=== PATIENT | male | born 1980 | race Caucasian/White ===

== ENCOUNTER 2021-01-30 01:21 | Emergency (ER) | payer MEDICAID, SELFPAY ==
[2021-01-30 03:49] VITALS: BP 122/72; PULSE 80; RESP 18; TEMP 36.7; O2SAT 100; BMI 31.1
--- NOTE | 2021-01-30 04:23 | ED.GENADULT ---
HPI - General Adult General Chief complaint: General Medical Stated complaint: CAT BITE Time Seen by Provider: 01/30/21 04:22 Source: patient Mode of arrival: ambulatory Limitations: no limitations History of Present Illness HPI narrative: Patient was scratched and bit by his cat 4 days ago on to his right leg noticed slight redness in the right thigh area no fever , domestic cat and behaving normal immunized Related Data Home Medications Medication Instructions Recorded Confirmed albuterol sulfate [ProAir HFA] 2 puff PO Q4-6H PRN 01/30/21 01/30/21 baclofen 1 tab PO TID PRN 01/30/21 01/30/21 blood sugar diagnostic [FreeStyle 01/30/21 01/30/21 Lite Strips] calcium carbonate [Calcium Antacid] 1 tab PO BID PRN 01/30/21 01/30/21 fluticasone propionate [Flovent 2 puff PO BID 01/30/21 01/30/21 HFA] ibuprofen 1 tab PO TID PRN 01/30/21 01/30/21 loratadine 1 tab PO DAILY PRN 01/30/21 01/30/21 varenicline [Chantix Continuing 1 tab PO BID 01/30/21 01/30/21 Month Box] Allergies Allergy/AdvReac Type Severity Reaction Status Date / Time pollen extracts [POLLEN] Allergy Intermediate SEASONAL Unverified 07/17/20 15:17 tramadol [TRAMADOL] Allergy Unknown LOST Unverified 07/17/20 15:17 TASTE,TONGUE SWELLING Review of Systems Review of Systems: Yes all other systems are reviewed and are negative PMFSH Past Medical History Medical History Asthma Back pain with history of spinal surgery Diabetes Failed spinal cord stimulator HTN (hypertension) Hypercholesteremia Surgical History H/O discectomy Social History Social History Advance Directives: No Advance Directives Information Provided: No Physical Exam Vital Signs: Vital Signs: Last Vital Signs Temp 98.0 F 01/30/21 03:49 Pulse 80 01/30/21 03:49 Resp 18 01/30/21 03:49 BP 122/72 01/30/21 03:49 Pulse Ox 100 01/30/21 03:49 Body Mass Index 31.1 Const: General: comfortable and no acute distress Extrem: Upper/lower leg/hip images: 1. Scratch keshia without significant surrounding erythema 2. Bite keshia with slight erythema no induration or pus discharge Discharge Plan Discharge Prescriptions: No Action calcium carbonate [Calcium Antacid] 300 mg (750 mg) tablet,chewable 1 tab PO BID PRN (Reason: Acid Reflux) RF: 0 (DME) FreeStyle Lite Strips Strip MISCELLANEOUS DAILY RF: 0 baclofen 20 mg tablet 1 tab PO TID PRN (Reason: Pain) RF: 0 ibuprofen 600 mg tablet 1 tab PO TID PRN (Reason: Pain) RF: 0 albuterol sulfate [ProAir HFA] 90 mcg/actuation HFA aerosol inhaler 2 puff PO Q4-6H PRN (Reason: Wheezing) RF: 0 loratadine 10 mg tablet 1 tab PO DAILY PRN (Reason: Itching) RF: 0 Flovent HFA 110 mcg/actuation HFA aerosol inhaler 2 puff PO BID RF: 0 Chantix Continuing Month Box 1 mg tablet 1 tab PO BID RF: 0
[2021-01-30] MEDS: Diphth,Pertus(ACell),Tet Adult 0.5 ML SYRINGE IM (05:20)
[2021-01-30] MEDS: Amoxicillin/Potassium Clav 875 MG TABLET PO (05:21)
== END 2021-01-30 05:35 | disposition home or self-care (01) ==
PROVIDERS: Emergency Provider Internal Medicine
DX: S81.851A Open bite, right lower leg, initial encounter (principal); M79.604 Pain in right leg; I10 Essential (primary) hypertension; Z79.899 Other long term (current) drug therapy; W55.01XA Bitten by cat, initial encounter; Y93.9 Activity, unspecified; Y92.9 Unspecified place or not applicable; Y99.9 Unspecified external cause status; E11.9 Type 2 diabetes mellitus without complications
CPT/HCPCS: 90471; 90715; 99283

== ENCOUNTER 2021-09-13 16:32 | Emergency (ER) | payer MEDICAID, SELFPAY ==
--- NOTE | ~2021-09-13 | XR_ITS ---
EXAMINATION: XR LUMBOSACRAL SPINE CLINICAL INFORMATION: Midline tenderness COMPARISON: None TECHNIQUE: Three views of the lumbosacral spine. FINDINGS: There are 5 lumbar type vertebral bodies that are normal in height and alignment. Diffuse degenerative disc disease throughout the lumbar spine. Anterior degenerative osteophytes. Posterior elements are intact. Left back generator with leads projecting cranially, off image. XR/XR lumbar spine 2-3V IMPRESSION: Degenerative changes of the lumbar spine without acute abnormality.
[2021-09-13 16:35] VITALS: BP 145/84; PULSE 94; RESP 18; TEMP 36.6; O2SAT 96; BMI 29.2
--- NOTE | 2021-09-13 17:22 | ED.BACK ---
HPI - Back Pain/Injury General Chief Complaint: Back Pain/Injury Stated Complaint: Back Pain No Injury Time Seen by Provider: 09/13/21 17:03 Source: patient Mode of arrival: ambulatory Limitations: no limitations History of Present Illness HPI Narrative: 41-year-old male with a history of chronic back pain, multiple back surgeries with a nerve stimulator in place here with complaints of acute on chronic pain over the last 3-4 days after stepping wrong?. No radiation of pain. No numbness or tingling. No saddle anesthesia. No bowel or bladder incontinence. No fevers or chills. Patient taking Motrin at home with continued symptoms. Has appointment in September from with [facility]. Related Data Home Medications Medication Instructions Recorded Confirmed albuterol sulfate 90 mcg/actuation 2 puff PO Q4-6H PRN 01/30/21 01/30/21 aerosol inhaler (ProAir HFA) baclofen 20 mg tablet 1 tab PO TID PRN 01/30/21 01/30/21 blood sugar diagnostic (FreeStyle 01/30/21 01/30/21 Lite Strips) calcium carbonate 300 mg (750 mg) 1 tab PO BID PRN 01/30/21 01/30/21 chewable tablet (Calcium Antacid) fluticasone propionate 110 2 puff PO BID 01/30/21 01/30/21 mcg/actuation HFA aerosol inhaler (Flovent HFA) ibuprofen 600 mg tablet 1 tab PO TID PRN 01/30/21 01/30/21 loratadine 10 mg tablet 1 tab PO DAILY PRN 01/30/21 01/30/21 varenicline 1 mg tablet (Chantix 1 tab PO BID 01/30/21 01/30/21 Continuing Month Box) Previous Rx's Medication Instructions Recorded amoxicillin 875 mg-potassium 1 tab PO BID #20 tab 01/30/21 clavulanate 125 mg tablet (Augmentin) cyclobenzaprine 10 mg tablet 10 mg PO TID PRN #10 tab 09/13/21 lidocaine 5 % topical patch 1 patch TOPICAL DAILY #15 ea 09/13/21 (Lidoderm) prednisone 20 mg tablet 40 mg PO DAILY #10 tab 09/13/21 Allergies Allergy/AdvReac Type Severity Reaction Status Date / Time pollen extracts [POLLEN] Allergy Intermediate SEASONAL Verified 11/14/21 17:11 tramadol [TRAMADOL] Allergy Unknown LOST Verified 09/13/21 17:11 TASTE,TONGUE SWELLING Review of Systems Review of Systems: Yes all other systems are reviewed and are negative Constitutional: Constitutional: Reports no additional constitutional complaints, Denies body ache(s), Denies chills, Denies fever(s), Denies headache(s) and Denies weakness Eyes: Eyes: Reports no additional eye complaints and Denies change in vision ENT: Reports system reviewed and no additional complaints, except as documented, Denies dizziness, Denies headache(s), Denies nasal congestion, Denies nasal discharge and Denies neck pain Cardiovascular: Cardiovascular: Reports no additional cardiovascular complaints, Denies chest pain, Denies leg edema and Denies dyspnea Respiratory: Respiratory: Reports no additional respiratory complaints, Denies cough and Denies dyspnea Gastrointestinal: Gastrointestinal: Reports no additional gastrointestinal complaints, Denies abdominal pain, Denies diarrhea, Denies nausea and Denies vomiting Genitourinary: Genitourinary: Denies urinary incontinence Musculoskeletal: Musculoskeletal: Reports no additional musculoskeletal complaints, Reports back pain, Denies arthralgias, Denies joint swelling, Denies neck pain, Denies numbness and Denies tingling Integumentary/Breasts: Skin/Breast: Reports system reviewed and no additional complaints, except as docu and Denies rash Neurologic: Reports system reviewed and no additional complaints, except as documented, Denies Abnormal speech present, Denies dizziness, Denies headache(s), Denies numbness, Denies tingling and Denies weakness PMFSH Past Medical History Attestation statement: The following information was validated with the patient. Source: old records reviewed and nursing notes reviewed Medical History Asthma Back pain with history of spinal surgery Diabetes Failed spinal cord stimulator HTN (hypertension) Hypercholesteremia Surgical History H/O discectomy Social History Social History Advance Directives: No Advance Directives Information Provided: No Physical Exam Vital Signs: Vital Signs: Last Vital Signs Temp 98 F 09/13/21 16:35 Pulse 94 09/13/21 16:35 Resp 18 09/13/21 16:35 BP 145/84 H 09/13/21 16:35 Pulse Ox 96 09/13/21 16:35 Body Mass Index 29.2 Const: General: cooperative, healthy appearing, comfortable and no acute distress Orientation/consciousness: patient oriented x3 Limitations: no limitations HENMT: Head: Yes normal to inspection Ears: hearing grossly normal bilaterally General nose exam: Normal external nose present Face and sinus: Yes normal facial exam Mouth: Normal oral and palatal mucosa present Throat: Yes posterior oropharynx normal Eyes: General: appearance normal, both eyes and all related structures Pupils: Equal, round and reactive pupils present Neck: Neck: Yes normal visual inspection Chest: Chest palpation & inspection: normal inspection of the chest Resp: Effort & Inspection: normal respiratory effort Auscultation: clear to auscultation bilaterally Cardio: Rate: regular rate Rhythm: regular rhythm Peripheral pulses: Peripheral pulses 2+ throughout GI: Inspection: Yes normal to inspection Palpation (GI): Soft to palpation and nontender Auscultation: normal bowel sounds : General: Yes no CVA tenderness Back/Spine/Pelvis: Other: midline tenderness lumbar with no step offs or deformities. Back: no CVA tenderness Thoracic/Lumbar Spine: thoracic and lumbar spine normal to inspection Skin: General skin exam: no rashes or lesions noted Neuro: General: patient oriented x3, no focal motor deficits and normal sensation to monofilament Cranial nerves: Yes CN's II-XII intact bilaterally, Yes Equal, round and reactive pupils present, Yes Bilaterally intact EOM present, Yes Nystagmus not present and Yes Normal facial strength present Cognition (Neuro): normal cognition Speech: No Abnormal speech present Gait exam (Neuro): Normal gait present Motor exam (neuro): 5/5 motor strength present throughout Sensory Exam: Normal double simultaneous stimulation for sensation Deep tendon reflexes (DTR's): Right patellar reflex intensity grade: 2+ and Left patellar reflex intensity grade: 2+ Extrem: General: Yes normal to inspection, Yes no pedal edema and Yes no calf tenderness Course Course Course Narrative: 41 yo male here with acute on chronic low back pain. Midline tenderness so will check x-ray. Normal neuro exam. No neurological deficits or red flag symptoms. 1844-x-ray shows degenerative changes no other acute finding. Patient received Toradol IM with improvement of symptoms. Will refer him back to his spine doctor. He tells me usually prednisone helps at home so I will prescribe this. Reviewed worrisome signs and symptoms of when to return to the emergency department. Comfortable discharge home. MDM - Back Pain/Injury Medical Records Attestation: I reviewed the patient's medical records. Lab Data Attestation: I reviewed the patient's lab results. Imaging Data lumbar xray: Attestation: I personally reviewed and interpreted this imaging study as follows: Radiologist's impression: FINDINGS: There are 5 lumbar type vertebral bodies that are normal in height and alignment. Diffuse degenerative disc disease throughout the lumbar spine. Anterior degenerative osteophytes. Posterior elements are intact. Left back generator with leads projecting cranially, off image. XR/XR lumbar spine 2-3V IMPRESSION: Degenerative changes of the lumbar spine without acute abnormality. Discharge Plan Discharge Clinical Impression: Strain of lumbar region Patient Disposition: Home, Self-Care Instructions: Back Pain (ED) Additional Instructions: Heat or ice Gentle stretching Follow-up with your specialist Prescriptions: New prednisone 20 mg tablet 40 mg PO DAILY Qty: 10 RF: 0 lidocaine [Lidoderm] 5 % adhesive patch,medicated 1 patch topical DAILY Qty: 15 RF: 0 cyclobenzaprine 10 mg tablet 10 mg PO TID PRN (Reason: muscle spasm) Qty: 10 RF: 0 No Action calcium carbonate [Calcium Antacid] 300 mg (750 mg) tablet,chewable 1 tab PO BID PRN (Reason: Acid Reflux) RF: 0 (DME) FreeStyle Lite Strips Strip MISCELLANEOUS DAILY RF: 0 baclofen 20 mg tablet 1 tab PO TID PRN (Reason: Pain) RF: 0 ibuprofen 600 mg tablet 1 tab PO TID PRN (Reason: Pain) RF: 0 albuterol sulfate [ProAir HFA] 90 mcg/actuation HFA aerosol inhaler 2 puff PO Q4-6H PRN (Reason: Wheezing) RF: 0 loratadine 10 mg tablet 1 tab PO DAILY PRN (Reason: Itching) RF: 0 Flovent HFA 110 mcg/actuation HFA aerosol inhaler 2 puff PO BID RF: 0 Chantix Continuing Month Box 1 mg tablet 1 tab PO BID RF: 0 amoxicillin-pot clavulanate [Augmentin] 875-125 mg tablet 1 tab PO BID Qty: 20 RF: 0 Referrals: [facility] [Primary Care Provider] - 2 days
[2021-09-13] MEDS: Ketorolac Tromethamine 60 MG/2 ML VIAL IM (19:08)
== END 2021-09-13 19:10 | disposition home or self-care (01) ==
PROVIDERS: Emergency Provider Emergency Medicine
DX: S39.012A Strain of muscle, fascia and tendon of lower back, initial encounter (principal); E11.9 Type 2 diabetes mellitus without complications; I10 Essential (primary) hypertension; J45.909 Unspecified asthma, uncomplicated; X58.XXXA Exposure to other specified factors, initial encounter; Y93.9 Activity, unspecified; Y92.9 Unspecified place or not applicable; Y99.9 Unspecified external cause status
CPT/HCPCS: 72100; 96372; 99284; J1885

== ENCOUNTER 2022-04-28 18:36 | Inpatient (IN) | payer OTHER, SELFPAY ==
[2022-04-28 19:00] VITALS: BP 137/92; PULSE 76; TEMP 36.9; O2SAT 97
[2022-04-28 19:20] VITALS: BMI 26.6
--- NOTE | 2022-04-28 19:44 | PC.NURSE ---
Perry is alert, fully oriented, pleasant and cooperative with admission assessment. Perry is admitted to [facility] on CV from [facility] for suicidal ideation with plan to OD on street drugs. He has history of depression and suicide attempts as well as polysubstance use disorder. Perry reports drinking > 10 drinks per day for a year. On admission he is placed on CIWA for treatment of alcohol WD and scores 14. Perry reports he is safe on the unit and will contact staff if that changes. He reports struggling with anxiety. He states he does not like how meds make him feel. Recent stressors include loss of job and housing. He reports poor appetite with 14 lb weight loss. He reports he drinks until he falls asleep and took ativan at HS in ED so is unsure if he has insomnia. His ability to focus is fair. Speech is normal rate, rhythm amd prosody with some thought blocking noted. He denies AH and VH. He reports 7/10 back pain but denies other physical complaint.
[2022-04-28] MEDS: LORazepam 1 MG TABLET 2 MG PO (19:57)
[2022-04-28] MEDS: Ibuprofen 600 MG TABLET PO (19:57)
[2022-04-29 08:30] VITALS: BP 138/95; PULSE 84; RESP 20; TEMP 36.7; O2SAT 97
[2022-04-29] MEDS: Thiamine HCL 100 MG TABLET PO (08:41)
[2022-04-29] MEDS: Ibuprofen 600 MG TABLET PO (08:41)
[2022-04-29] MEDS: LORazepam 1 MG TABLET 2 MG PO (08:42)
[2022-04-29 09:52] LABS: Estimated Average Glucose 111 mg/dL; Hemoglobin A1c % 5.5 %
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
[2022-04-29 10:35] LABS: Alanine Aminotransferase 13 U/L (0-40); Albumin Level 3.9 g/dL (3.5-5.0); Alkaline Phosphatase 75 U/L (39-117); Anion Gap 10 (12-20); Aspartate Amino Transferase 16 U/L (5-37); Bilirubin Total 0.4 mg/dL (0.0-1.0); Blood Urea Nitrogen 13 mg/dL (9-16); Calcium 8.6 mg/dL (8.4-10.2); Carbon Dioxide 26 mmol/L (22-29); Chloride 107 mmol/L (96-108); Cholesterol 196 mg/dL; Creatinine Clr Calc Pharmacy 106.8; Estimated Glomerular Filt Rate > 60; Glucose Fasting 98 mg/dL (60-99); HDL Cholesterol 48 mg/dL; LDL Cholesterol Calculated 114 mg/dl; Potassium 4.7 mmol/L (3.3-5.1); Sodium 138 mmol/L (135-145); Total Protein 6.9 g/dL (6.5-8.0); Triglycerides 171 mg/dL
[2022-04-29 10:59] LABS: Thyroid Stimulating Hormone 0.62 uIU/mL (0.32-4.0)
[2022-04-29 11:31] LABS: Folate 10.5 ng/mL (> or = 4.0); Vitamin B12 566 pg/mL (200-900)
[2022-04-29 12:52] VITALS: BP 148/98; PULSE 77; RESP 18; TEMP 36.6; O2SAT 99
[2022-04-29] MEDS: LORazepam 1 MG TABLET PO (12:55)
[2022-04-29 14:42] VITALS: BP 129/78; PULSE 87; RESP 18; TEMP 36.8; O2SAT 99
[2022-04-29] MEDS: Sertraline HCL 50 MG TABLET PO (14:43)
[2022-04-29] MEDS: cloNIDine HCL 0.1 MG TABLET PO (14:43)
--- NOTE | 2022-04-29 14:59 | MHC.CLN ---
PT TRIGGERS FOR WT LOSS ON NURSING ADMISSION ASSESSMENT PREVIOUS WT HX REVEALS 9% NON-SIGNICFICANT WT LOSS X 1 YEAR PT REMAINS WITHIN IBW RANGE CONTINUE CURRENT CARE PLAN
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
--- NOTE | 2022-04-29 15:28 | PC.NURSE ---
Perry is discharged at this time per MD order. He reports he does not have a place to stay or supports in place. He declines to stay until [facility] can assist with making referrals. He reports back pain 05/09 and denies physical complaint. He has been utilizing ativan prns for alcohol withdrawal. Pt states, I am confident I can stay away from drugs and alcohol. I won't hurt myself He denies ideation plan or intent to harm self or others.
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
== END 2022-04-29 15:38 | disposition home or self-care (01) | DRG 755 ==
PROVIDERS: Social Worker; Admitting Provider Psychiatry & Neurology Psychiatry; Visit Provider Psychiatry & Neurology Psychiatry
DX: F43.10 Post-traumatic stress disorder, unspecified (principal); R45.851 Suicidal ideations; F11.23 Opioid dependence with withdrawal; F12.10 Cannabis abuse, uncomplicated; F19.20 Other psychoactive substance dependence, uncomplicated; F41.9 Anxiety disorder, unspecified; G89.29 Other chronic pain; M54.9 Dorsalgia, unspecified; Z88.5 Allergy status to narcotic agent; Z79.51 Long term (current) use of inhaled steroids; Z79.899 Other long term (current) drug therapy
CPT/HCPCS: 36415; 80053; 80061; 82607; 82746; 83036; 84443

== ENCOUNTER 2022-10-01 19:43 | Inpatient (IN) | payer OTHER, MEDICAID, SELFPAY ==
--- NOTE | 2022-10-01 | ECG_ITS ---
Test Reason : MED CLEARANCE Blood Pressure : / mmHG Vent. Rate : 087 BPM Atrial Rate : 087 BPM P-R Int : 136 ms QRS Dur : 090 ms QT Int : 366 ms P-R-T Axes : 000 148 144 degrees QTc Int : 440 ms Limb leads reversal Normal sinus rhythm Left posterior fascicular block Nonspecific ST and T wave abnormality Abnormal ECG When compared with ECG of 23-JAN-2015 23:27, Left posterior fascicular block is now Present T wave inversion now evident in Lateral leads Referred By: Helen Negrete Electronically Signed By:Leonardo Morales
[2022-10-01 19:48] VITALS: BP 135/81; PULSE 87; RESP 16; TEMP 37.3; O2SAT 98; BMI 25.8
[2022-10-01 20:27] LABS: Appearance Urine Clear; Color Urine Yellow; Glucose Urine UA Negative (Negative); Leukocyte Esterase Urine Negative (Negative); Nitrite Urine Negative (Negative); PH 5.5 (5.0-9.0); Specific Gravity - Urine 1.025 (1.005-1.025); Urine Blood Negative (Negative); Urine Ketones Negative (Negative); Urine Protein Negative (Neg-Trace)
--- NOTE | 2022-10-01 20:32 | ED.PSYCH ---
HPI - Psych General Chief Complaint: Psychiatric Symptoms Stated Complaint: si Time Seen by Provider: 10/01/22 19:48 Source: patient Mode of arrival: EMS Limitations: no limitations History of Present Illness HPI Narrative: 42-year-old male past pertinent medical history schizoaffective, posttraumatic stress disorder, polysubstance abuse including opioids presents today to the emergency department on a [address] 12 from [facility] clinic for SI with a plan. Patient states that his plan was to fall off a bridge. Patient denies homicidal ideation. Patient states that he is going through a really hard time right now, is from his , and addicted to oxycodone. Patient states he wants to get his life back on track. Previously was hospitalized for psychiatric issues in March, did not follow-up with outpatient psychiatric services. Patient admits to cocaine, muscle relaxer, oxycodone use this morning. Denies current use of tobacco or alcohol. Denies visual, tactile, auditory hallucinations. No medical complaints. Denies chest pain, shortness of breath, difficulty breathing, nausea, vomiting, diarrhea, weakness, dizziness, headache, numbness or tingling of upper or lower extremities. Currently living out of his car. Related Data Home Medications Medication Instructions Recorded Confirmed baclofen 20 mg tablet 1 tab PO TID PRN Pain 01/30/21 10/01/22 fluticasone propionate 110 2 puff PO BID 01/30/21 10/01/22 mcg/actuation HFA aerosol inhaler (Flovent HFA) Previous Rx's Medication Instructions Recorded albuterol sulfate 90 mcg/actuation 2 puff PO Q4-6H PRN Wheezing 30 04/29/22 aerosol inhaler (ProAir HFA) days #1 inhaler clonidine HCl 0.1 mg tablet 0.1 mg PO TID 30 days #90 tabs 04/29/22 nicotine (polacrilex) 2 mg gum 2 mg buccal Q2H PRN nicotine 04/29/22 craving 30 days #60 ea nicotine 21 mg/24 hr daily 21 mg transdermal DAILY PRN 04/29/22 transdermal patch nicotine craving 28 days #28 ea Allergies Allergy/AdvReac Type Severity Reaction Status Date / Time pollen extracts [POLLEN] Allergy Intermediate SEASONAL Verified 09/13/21 17:11 tramadol [TRAMADOL] Allergy Unknown LOST Verified 09/13/21 17:11 TASTE,TONGUE SWELLING Review of Systems Review of Systems: Constitutional : No Weight loss, No Fever, No Chills, No Fatigue, No Malaise ENT/Mouth : No sore throat, No Rhinorrhea Eyes: No Eye Pain, No Swelling, No Redness Cardiovascular : No Chest Pain, No SOB, No Dyspnea on Exertion, No Orthopnea, No Edema, No Palpitations Respiratory : No Cough, No Sputum, No Wheezing Gastrointestinal : No Nausea, No Vomiting, No Diarrhea, No Constipation, No abdominal Pain, No Hematochezia, No Melena Genitourinary : No Dysuria, No Urinary Frequency, No Hematuria, Musculoskeletal : No joint pain, No Myalgias, No Joint Swelling Skin : No Skin Lesions, No rash Neuro : No Weakness, No Numbness, No Dizziness, No Headache Psych : + Anxiety/Panic, + Depression, +SI, -HI, -A/V/T Hallucinations All other systems reviewed and are negative [facility] Past Medical History Attestation statement: The following information was validated with the patient. Source: old records reviewed and nursing notes reviewed Medical History Asthma Back pain with history of spinal surgery Diabetes Failed spinal cord stimulator HTN (hypertension) Hypercholesteremia Surgical History H/O discectomy Social History Social History Household Members: None Housing: Homeless Do you presently have visiting nurse or other home services: No Patient Tobacco Use Status: Current everyday Tobacco user Tobacco use type: Cigarette e-Cigarette/Vaping Use: Never Used Second Hand Smoke Exposure: No Substance Use Type: Crack/Cocaine, Marijuana and Opiates Advance Directives: No Advance Directives Information Provided: No Sexual orientation: Did not discuss. Physical Exam Vital Signs: Vital Signs: Last Vital Signs Temp 99.1 F 10/01/22 19:48 Pulse 87 10/01/22 19:48 Resp 16 10/01/22 19:48 BP 135/81 10/01/22 19:48 Pulse Ox 98 10/01/22 19:48 O2 Del Method 10/01/22 19:48 BMI result Body Mass Index 25.8 vss Appearance: Alert.? Oriented X3.? No acute distress. Head: Normocephalic, atraumatic, no step-offs or deformities Eyes: Pupils equal, round and reactive to light.? Extraocular eye movements intact. No nystagmus noted. CVS: Normal heart rate and rhythm.? Pulses normal.? Respiratory: No respiratory distress.? Breath sounds normal.? Abdomen: Soft and nontender.? Active bowel sounds all 4 quadrants. Skin: Skin warm and dry.? Normal skin color.? Normal skin turgor.? Extremities: No lower extremity edema.? No calf ttp. 5/5 strength to bilateral upper and lower extremities Back: No midline tenderness, no C-spine tenderness, full range of motion, no CVA tenderness bilaterally Neuro: Oriented X 3.? No motor deficit.? No sensory deficit. CN 2-12 intact. Alternating rapid movements intact, including [id number], nose to finger. Ambulating with steady gait. No slurring of speech. Course Reevaluation(s) Reevaluation #1: Patient's CBC with no acute findings. Chemistry with no acute electrolyte abnormalities requiring intervention. UA without infection. Urine toxicology positive for fentanyl, amphetamines, cocaine, marijuana. Salicylates, acetaminophen negative. Ethanol negative. Flu/COVID/RSV negative. At this time patient will be placed into observation to allow more time to be evaluated by the behavioral health team. At time observation was started patient common cooperative no acute distress will continue to monitor. Time: 21:17 MDM - Psych MDM Narrative Medical decision making narrative: 2036 42-year-old male presents today via [facility] clinic on [address] for SI with plan. PE benign. Plan - Medical Clearance, psych eval. Medical Records Attestation: I reviewed the patient's medical records. Lab Data Attestation: I reviewed the patient's lab results. Result diagrams: 10/01/22 20:47 10/01/22 20:47 Labs: Lab Results 10/01/22 10/01/22 10/01/22 Range/Units 20:07 20:07 20:07 WBC (4.8-10.8) X10*3/uL RBC (4.60-5.80) X10*6/uL Hgb (14.0-18.0) g/dl Hct (42.0-52.0) % MCV (80.0-98.0) fL MCH (27.0-33.0) pg MCHC (31.0-36.0) g/dl RDW (11.0-16.0) % Plt Count (160-400) X10*3/uL MPV (9.4-12.4) fL Immature Gran % (Auto) (0.0-0.4) % Neut % (Auto) (45-73) % Lymph % (Auto) (20-40) % [place] % (Auto) (2-11) % Eos % (Auto) (0-4) % Baso % (Auto) (0-2) % Lymph # (Auto) (1.2-4.9) X10*3/uL [place] # (Auto) (0.1-1.2) X10*3/uL Eos # (Auto) (0.0-0.4) X10*3/uL Baso # (Auto) (0.0-0.2) X10*3/uL Abs Immat Gran (auto) (0.00-0.03) X10*3/uL Absolute Neuts (auto) (2.0-8.3) x10*3/uL Absolute Nucleated RBC (0.0-0.012) X10*3/uL Nucleated RBC % (auto) (0.0-0.2) /100WBC Sodium (135-145) mmol/L Potassium (3.3-5.1) mmol/L Chloride (96-108) mmol/L Carbon Dioxide (22-29) mmol/L Anion Gap (12-20) BUN (9-16) mg/dL Creatinine (0.5-1.4) mg/dL Estim Creat Clear Calc Estimated GFR Random Glucose (60-115) mg/dL Calcium (8.4-10.2) mg/dL Magnesium (1.6-2.6) mg/dL Total Bilirubin (0.0-1.0) mg/dL AST (5-37) U/L ALT (0-40) U/L Alkaline Phosphatase (39-117) U/L Total Protein (6.5-8.0) g/dL Albumin (3.5-5.0) g/dL Urine Color Yellow Urine Appearance Clear Urine pH 5.5 (5.0-9.0) Ur Specific [place] 1.025 (1.005-1.025) Urine Protein Negative (Neg-Trace) mg/dL Urine Glucose (UA) Negative (Negative) mg/dL Urine Ketones Negative (Negative) mg/dL Urine Blood Negative (Negative) Urine Nitrite Negative (Negative) Ur Leukocyte Esterase Negative (Negative) Salicylates Urine Opiates Screen Not Detected (Not Detect) Urine Fentanyl Screen POSITIVE H (Not Detect) Acetaminophen Ur Barbiturates Screen Not Detected (Not Detect) Ur Phencyclidine Scrn Not Detected (Not Detect) Ur Amphetamines Screen POSITIVE H (Not Detect) U Benzodiazepines Scrn Not Detected (Not Detect) Urine Cocaine Screen POSITIVE H (Not Detect) U Marijuana (THC) Screen POSITIVE H (Not Detect) Ethyl Alcohol mg/dL Influenza Type A (PCR) NEGATIVE (Negative) Influenza Type B (PCR) NEGATIVE (Negative) RSV RNA Qual (PCR) NEGATIVE (Negative) SARS-CoV-2 RNA (RT-PCR) NEGATIVE (Negative) 10/01/22 10/01/22 10/01/22 Range/Units 20:47 20:47 20:48 WBC 5.8 (4.8-10.8) X10*3/uL RBC 4.70 (4.60-5.80) X10*6/uL Hgb 14.2 (14.0-18.0) g/dl Hct 41.7 L (42.0-52.0) % MCV 88.7 (80.0-98.0) fL MCH 30.2 (27.0-33.0) pg MCHC 34.1 (31.0-36.0) g/dl RDW 12.3 (11.0-16.0) % Plt Count 224 (160-400) X10*3/uL MPV 9.9 (9.4-12.4) fL Immature Gran % (Auto) 0.7 H (0.0-0.4) % Neut % (Auto) 53.7 (45-73) % Lymph % (Auto) 32.1 (20-40) % [place] % (Auto) 6.6 (2-11) % Eos % (Auto) 6.0 H (0-4) % Baso % (Auto) 0.9 (0-2) % Lymph # (Auto) 1.9 (1.2-4.9) X10*3/uL [place] # (Auto) 0.4 (0.1-1.2) X10*3/uL Eos # (Auto) 0.4 (0.0-0.4) X10*3/uL Baso # (Auto) 0.1 (0.0-0.2) X10*3/uL Abs Immat Gran (auto) 0.04 H (0.00-0.03) X10*3/uL Absolute Neuts (auto) 3.1 (2.0-8.3) x10*3/uL Absolute Nucleated RBC 0.000 (0.0-0.012) X10*3/uL Nucleated RBC % (auto) 0.0 (0.0-0.2) /100WBC Sodium 137 (135-145) mmol/L Potassium 3.7 D (3.3-5.1) mmol/L Chloride 99 (96-108) mmol/L Carbon Dioxide 32 H (22-29) mmol/L Anion Gap 10 L (12-20) BUN 14 (9-16) mg/dL Creatinine 0.98 (0.5-1.4) mg/dL Estim Creat Clear Calc 99.3 Estimated GFR > 60 Random Glucose 101 (60-115) mg/dL Calcium 9.4 D (8.4-10.2) mg/dL Magnesium 2.1 (1.6-2.6) mg/dL Total Bilirubin 0.3 (0.0-1.0) mg/dL AST 17 (5-37) U/L ALT 14 (0-40) U/L Alkaline Phosphatase 91 (39-117) U/L Total Protein 7.2 (6.5-8.0) g/dL Albumin 4.0 (3.5-5.0) g/dL Urine Color Urine Appearance Urine pH (5.0-9.0) Ur Specific [place] (1.005-1.025) Urine Protein (Neg-Trace) mg/dL Urine Glucose (UA) (Negative) mg/dL Urine Ketones (Negative) mg/dL Urine Blood (Negative) Urine Nitrite (Negative) Ur Leukocyte Esterase (Negative) Salicylates Cancelled < 5.0 L Urine Opiates Screen (Not Detect) Urine Fentanyl Screen (Not Detect) Acetaminophen Cancelled < 1 Ur Barbiturates Screen (Not Detect) Ur Phencyclidine Scrn (Not Detect) Ur Amphetamines Screen (Not Detect) U Benzodiazepines Scrn (Not Detect) Urine Cocaine Screen (Not Detect) U Marijuana (THC) Screen (Not Detect) Ethyl Alcohol < 10 mg/dL Influenza Type A (PCR) (Negative) Influenza Type B (PCR) (Negative) RSV RNA Qual (PCR) (Negative) SARS-CoV-2 RNA (RT-PCR) (Negative) Critical Care Time Critical Care Time Critical Care Time: No Discharge Plan Discharge Clinical Impression: Polysubstance abuse, Suicidal ideation, Depression Patient Disposition: Still a Patient Prescriptions: No Action baclofen 20 mg tablet 1 tab PO TID PRN (Reason: Pain) Label Comments: last picked up 01/21/22 30 day supply fluticasone propionate [Flovent HFA] 110 mcg/actuation HFA aerosol inhaler 2 puff PO BID Label Comments: last picked up 09/2021 clonidine HCl 0.1 mg Tablet 0.1 mg PO TID 30 Days Qty: 90 0RF Protocol: Hold for SBP< HOLD for SBP < : 90 nicotine (polacrilex) 2 mg Gum 2 mg buccal Q2H PRN (Reason: nicotine craving) 30 Days Qty: 60 0RF nicotine 21 mg/24 hr Patch 24 Hour 21 mg transdermal DAILY PRN (Reason: nicotine craving) 28 Days Qty: 28 0RF albuterol sulfate [ProAir HFA] 90 mcg/actuation HFA aerosol inhaler 2 puff PO Q4-6H PRN (Reason: Wheezing) 30 Days Qty: 1 0RF
[2022-10-01 20:42] LABS: Amphetamine Screen Urine POSITIVE (Not Detect); Barbiturates, Urine Not Detected (Not Detect); Benzodiazepines Screen Urine Not Detected (Not Detect); Cannabinoid Screen Urine POSITIVE (Not Detect); Cocaine Screen Urine POSITIVE (Not Detect); Fentanyl, urine POSITIVE (Not Detect); Opiate Screen Urine Not Detected (Not Detect); Phencyclidine Screen Urine Not Detected (Not Detect)
[2022-10-01 20:53] LABS: MANUAL DIFF FLAG NO
[2022-10-01 20:57] LABS: Influenza A PCR NEGATIVE (Negative); Influenza B PCR NEGATIVE (Negative); Resp Syncy Virus RNA Qual PCR NEGATIVE (Negative); SARS COV2 PCR INHOUSE NEGATIVE (Negative)
[2022-10-01 21:00] LABS: Basophils Absolute Auto 0.1 X10*3/uL (0.0-0.2); Basophils Percent Auto 0.9 % (0-2); Eosinophils Absolute Auto 0.4 X10*3/uL (0.0-0.4); Hematocrit 41.7 % (42.0-52.0); Hemoglobin 14.2 g/dl (14.0-18.0); Imm Gran Abs Auto 0.04 X10*3/uL (0.00-0.03); Imm Gran Pct Auto 0.7 % (0.0-0.4); Lymphocytes Absolute Auto 1.9 X10*3/uL (1.2-4.9); Lymphocytes Percent Auto 32.1 % (20-40); Mean Corpuscular HGB Conc 34.1 g/dl (31.0-36.0); Mean Corpuscular Hemoglobin 30.2 pg (27.0-33.0); Mean Corpuscular Volume 88.7 fL (80.0-98.0); Mean Platelet Volume 9.9 fL (9.4-12.4); Monocytes Absolute Auto 0.4 X10*3/uL (0.1-1.2); Monocytes Percent Auto 6.6 % (2-11); Neutrophils Absolute Auto 3.1 x10*3/uL (2.0-8.3); Neutrophils Percent Auto 53.7 % (45-73); Platelet Count 224 X10*3/uL (160-400); Red Cell Distribution Width 12.3 % (11.0-16.0); White Blood Count 5.8 X10*3/uL (4.8-10.8)
[2022-10-01 21:12] LABS: Acetaminophen LAB < 1 mcg/mL (<30); Ethanol < 10 mg/dL; Salicylate < 5.0 mg/dL (15-30)
[2022-10-01 21:14] LABS: Alanine Aminotransferase 14 U/L (0-40); Alkaline Phosphatase 91 U/L (39-117); Anion Gap 10 (12-20); Aspartate Amino Transferase 17 U/L (5-37); Bilirubin Total 0.3 mg/dL (0.0-1.0); Blood Urea Nitrogen 14 mg/dL (9-16); Calcium 9.4 mg/dL (8.4-10.2); Carbon Dioxide 32 mmol/L (22-29); Chloride 99 mmol/L (96-108); Creatinine Clr Calc Pharmacy 99.3; Estimated Glomerular Filt Rate > 60; Glucose Random 101 mg/dL (60-115); Magnesium 2.1 mg/dL (1.6-2.6); Potassium 3.7 mmol/L (3.3-5.1); Sodium 137 mmol/L (135-145); Total Protein 7.2 g/dL (6.5-8.0)
--- NOTE | 2022-10-02 06:23 | PC.NURSE ---
Patient slept through the night, no distress observed/reported, behavior non concerning, patient was assessed by [facility] at their clinic in [place], patient disposition is section 12 inpatient bed search, pre accepted to [facility], med rec completed/pending provider's approval, VSS, will continue to monitor
[2022-10-02 06:34] VITALS: BP 128/81; PULSE 68; RESP 17; TEMP 36.9; O2SAT 98
[2022-10-02 14:10] VITALS: BP 122/83; PULSE 76; RESP 16; TEMP 36.3; O2SAT 97
--- NOTE | 2022-10-02 16:24 | PC.NURSE ---
nurse to nurse given
[2022-10-02 17:20] VITALS: BP 139/95; PULSE 76; RESP 16; TEMP 36.6; O2SAT 99
--- NOTE | 2022-10-02 18:56 | PC.NURSE ---
Perry was admitted to M3 at [address] [facility] on CV for treatment of Schizoaffective disorder; Cannabis use disorder, severe; Stimulant use disorder mild, cocaine; Alcohol use disorder, severe; Opioid use disorder, moderate. Precipitant of admission includes SI with plan to jump off a bridge. Pt A&O, INAD, delayed responses, pleasant and cooperative, guarded. Mood is depressed. Affect is constricted. Dns SI/HI/AH/VH. Appears internally preoccupied. Thought process linear.Thought blocking.? Denies ideation/plan/intent to harm self or others. Poor sleep. Focus appropriate. Substance issues: UTOX +FYL, +amphetamines, +SNOW, +THC.? Alcohol prior to admission; oxycodone prior to admission; marijuana prior to admission.? Reports at least four shots alcohol daily, cannabis 1-2 joints daily; Cocaine $50 daily; Oxycodone, provides vague history but crisis eval reports addiction. Medical issues: Smoker?s cough, asthma; hypertension; hypercholesterolemia; failed spinal cord stimulator/hx spinal surgery/back pain. Medical record lists diabetes, however pt sts he ?cheated? on the test and told them he did not have anything to eat beforehand but he actually had donuts and coffee. He does not think he has diabetes. EKG: NSR, left posterior fascicular block, nonspecific ST & T-wave abnormality. Safety checks: Q 15.
[2022-10-02 19:55] VITALS: BP 144/88
[2022-10-02] MEDS: cloNIDine HCL 0.1 MG TABLET PO (19:58)
[2022-10-02] MEDS: Fluticasone Propionate 100 MCG BLST.W.DEV 2 PUFF INHALE (20:26)
[2022-10-03 00:10] VITALS: BP 127/77; PULSE 66; RESP 16; O2SAT 98
[2022-10-03 06:00] VITALS: BP 146/95; PULSE 79; RESP 18; TEMP 36.6; O2SAT 97
--- NOTE | 2022-10-03 06:39 | PC.NURSE ---
Patient refused labs this am.
[2022-10-03 08:43] LABS: Estimated Average Glucose 120 mg/dL; Hemoglobin A1c % 5.8 %
[2022-10-03] MEDS: Acetaminophen 325 MG TABLET 650 MG PO ×2 (09:26→19:18)
[2022-10-03] MEDS: LORazepam 1 MG TABLET 2 MG PO ×2 (09:27→19:18)
[2022-10-03] MEDS: cloNIDine HCL 0.1 MG TABLET PO (09:27)
[2022-10-03 09:41] LABS: Cholesterol 234 mg/dL; HDL Cholesterol 53 mg/dL; LDL Cholesterol Calculated 150 mg/dl; Magnesium 2.1 mg/dL (1.6-2.6); Thyroid Stimulating Hormone 0.73 uIU/mL (0.32-4.0); Triglycerides 157 mg/dL
[2022-10-03 09:54] LABS: Folate 12.4 ng/mL (> or = 4.0); Vitamin B12 608 pg/mL (200-900)
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
[2022-10-03 18:00] VITALS: BP 139/84; PULSE 78; RESP 18; TEMP 36.8; O2SAT 97
[2022-10-03] MEDS: cloNIDine HCL 0.2 MG TABLET PO (19:18)
[2022-10-04] MEDS: Baclofen 20 MG TABLET PO ×2 (01:50→20:10)
[2022-10-04] MEDS: LORazepam 1 MG TABLET 2 MG PO (01:50)
[2022-10-04] MEDS: traZODone HCL 50 MG TABLET PO ×2 (01:50→20:10)
[2022-10-04] MEDS: Acetaminophen 325 MG TABLET 650 MG PO ×2 (01:50→20:10)
[2022-10-04 08:00] VITALS: PULSE 80
[2022-10-04 09:02] VITALS: BP 127/81; PULSE 82; RESP 18; TEMP 36.7; O2SAT 98
[2022-10-04] MEDS: cloNIDine HCL 0.2 MG TABLET PO ×3 (09:04→20:10)
[2022-10-04] MEDS: LORazepam 1 MG TABLET PO (12:15)
[2022-10-04 14:24] VITALS: BP 168/96; PULSE 100
--- NOTE | 2022-10-04 14:25 | HO.PSYCHPN ---
Subjective Subjective Date of Service: 10/04/22 Reason For Visit: SI, GUY Interim History: pt reports his mood is just tired, then adds he is experiencing anxiety. states he wants to work after discharge and so declines residential rehab. perhaps could do partial day, such as [facility] evenings. had been taking clonidine at home, stopped, relapsed to substance use. c/o hip pain, shows spot he had stim unit, asking for more aggressive pain mgmt. counseled to see pain specialist, but agrees to lyhalliea, which he has been on in the past and had a good experience with. per staff, using multiple substances (utox fentanyl, cocaine, stimulants POS). on CIWA and COWS. slept most of yesterday. safe. c/o anxiety. slept overnight. Mental Status Exam Mental Status Exam Narrative: A&O. Unkempt, hospital attire, laying down in bed. Poor eye contact, attentive. No Tics or Tremors. No abnormal involuntary movements. Calm, guarded but participated in interview. Non-pressured speech, spontaneous with regular rate and rhythm, normal volume and prosody. No prolonged speech latency or dysarthria. Mood is just tired,? affect is constricted. no SI/HI/AVH expressed. Thoughts are coherent, organized. No known cognitive or memory impairment. Insight/ Judgment fair and adequate. Diagnostics Vital Signs (24Hr): Vital Signs - 24 hr 10/03/22 18:00 10/04/22 09:02 10/04/22 14:24 Temperature 98.2 F 98.0 F Pulse Rate 78 82 100 Respiratory Rate 18 18 Blood Pressure 139/84 127/81 168/96 H Pulse Oximetry 97 98 Oxygen Delivery Method Room Air Room Air BMI result Body Mass Index 25.8 Labs Results: 10/01/22 20:47 10/01/22 20:47 Labs: Laboratory Results - last 48 hr 10/03/22 10/03/22 10/03/22 08:13 08:13 08:13 Estimat Average Glucose 120 Hemoglobin A1c % 5.8 Magnesium 2.1 Triglycerides 157 Cholesterol 234 LDL Cholesterol, Calc 150 HDL Cholesterol 53 Vitamin B12 608 Folate 12.4 TSH 0.73 Free T4 0.80 Medications Medications Current Medications Acetaminophen (Acetaminophen 325 Mg Tablet) 650 mg PO Q6H PRN PRN Reason: Headache/Pain Mild Scale (1-3) Last Admin: 10/04/22 01:50 Dose: 650 mg Al Hydroxide/Mg Hydroxide (Magnesium Hydrox/Alum Hydrox 30 Ml Oral.Susp) 30 ml PO Q6H PRN PRN Reason: Heartburn/Nausea Albuterol Sulfate (Albuterol Sulfate 90 Mcg 8 Gm Inhaler) 2 puff INHALE Q4H PRN PRN Reason: Wheezing Baclofen (Baclofen 20 Mg Tablet) 20 mg PO TID PRN PRN Reason: Muscle Spasm Last Admin: 10/04/22 01:50 Dose: 20 mg Clonidine HCl (Clonidine Hcl 0.2 Mg Tablet) 0.2 mg PO TID [facility]; Protocol Last Admin: 10/04/22 09:04 Dose: 0.2 mg Fluticasone Propionate (Fluticasone Propionate 100 Mcg Blst.W.Dev) 2 puff INHALE RBID [facility] Last Admin: 10/04/22 09:04 Dose: Not Given Hydroxyzine HCl (Hydroxyzine Hcl 50 Mg Tablet) 50 mg PO Q6H PRN PRN Reason: Anxiety Loperamide HCl (Loperamide Hcl 2 Mg Capsule) 4 mg PO Q6H PRN PRN Reason: diarrhea Lorazepam (Lorazepam 1 Mg Tablet) 2 mg PO Q4H PRN PRN Reason: ciwa 13-17 Last Admin: 10/04/22 01:50 Dose: 2 mg Lorazepam (Lorazepam 1 Mg Tablet) 1 mg PO Q4H PRN PRN Reason: ciwa 7-12 Last Admin: 10/04/22 12:15 Dose: 1 mg Magnesium Hydroxide (Milk Of Magnesia 30 Ml Oral.Susp) 30 ml PO DAILY PRN PRN Reason: Constipation Nicotine (Nicotine 21 Mg Patch.Td24) 21 mg TRANSDERMA DAILY PRN PRN Reason: nicotine craving Nicotine Polacrilex (Nicotine Polacrilex 2 Mg Gum) 2 mg BUCCAL Q2H PRN PRN Reason: nicotine craving Ondansetron HCl (Ondansetron Odt 4 Mg Tab.Rapdis) 4 mg TRANSLINGU Q6H PRN PRN Reason: nausea Pharmacy Consult (Consult Rx Perform Med Rec) 1 each MISCELLANE ONCE PRN PRN Reason: Consult order Pregabalin (Pregabalin 25 Mg Capsule) 25 mg PO BID DENYS Trazodone HCl (Trazodone Hcl 50 Mg Tablet) 50 mg PO BEDTIME PRN PRN Reason: Insomnia Last Admin: 10/04/22 01:50 Dose: 50 mg Allergies Allergies Allergy/AdvReac Type Severity Reaction Status Date / Time pollen extracts [POLLEN] Allergy Intermediate SEASONAL Verified 09/13/21 17:11 tramadol [TRAMADOL] Allergy Unknown LOST Verified 09/13/21 17:11 TASTE,TONGUE SWELLING Assessment & Plan Assessment & Plan (1) Polysubstance abuse: Status: Acute Code(s): F19.10 - Other psychoactive substance abuse, uncomplicated (2) PTSD (post-traumatic stress disorder): Status: Acute Code(s): F43.10 - Post-traumatic stress disorder, unspecified Plan Pt is a 42-year-old male who carries a dx of polysubstance abuse, PTSD. He presented to [facility] on 10/01/2022 due to SI with a plan to jump off a bridge.?Precipitating factors include homelessness, from his , and addicted to oxycodone.?Pt has been abusing ?K56? pink oxycodone pills daily for the past month. Using cocaine, $50 daily. His utox positive for fentanyl, cocaine, amphetamines, and cannabis. He has also been abusing alcohol, 4-5 fireballs daily. Placed on CIWA and COWs. Pt has been med non-adherent. Per [facility] crisis eval, he has referral for [facility] services. Remote hx of IPLOC in 2012. Hx of depression, SI, aggression, and impulsivity. Plan: 10/03: will increase clonidine to 0.2 mg TID for hyperarousal, agitation. Pt declines further med adjustment at this time. 10/04: start lyrica 25 BID for neuropathic pain. otherwise continue current mgmt. I spent ___35___ minutes with the patient and/or on the patient floor today, greater than?50% of which was spent counseling/coordinating care. Patient educated on: diagnosis, medication risk/benefits, substance abuse, therapeutic strategies and medical condition Reason for contiued inpatient stay Substantial Risk for: harm to self, inability to function and rapid decompensation
[2022-10-04 14:37] VITALS: BP 120/60; PULSE 91
[2022-10-04] MEDS: hydrOXYzine HCL 50 MG TABLET PO ×2 (14:39→20:10)
[2022-10-04 20:02] VITALS: BP 109/64; PULSE 89; RESP 18; TEMP 36.4; O2SAT 98
[2022-10-04] MEDS: Pregabalin 25 MG CAPSULE PO (20:28)
[2022-10-05] MEDS: traZODone HCL 50 MG TABLET PO ×3 (02:35→23:03)
[2022-10-05] MEDS: Acetaminophen 325 MG TABLET 650 MG PO (02:35)
[2022-10-05] MEDS: hydrOXYzine HCL 50 MG TABLET PO ×3 (02:35→21:16)
[2022-10-05] MEDS: Baclofen 20 MG TABLET PO ×3 (02:35→23:03)
[2022-10-05] MEDS: Pregabalin 25 MG CAPSULE PO (09:02)
[2022-10-05] MEDS: cloNIDine HCL 0.2 MG TABLET PO ×3 (09:02→20:15)
[2022-10-05 09:05] VITALS: BP 115/65; PULSE 75; RESP 17; TEMP 36.8; O2SAT 98
--- NOTE | 2022-10-05 16:18 | HO.PSYCHPN ---
Subjective Subjective Date of Service: 10/05/22 Reason For Visit: SI, GUY Interim History: pain improved, but continues. interested in increase in lyrica from 25 BID to 50 BID, which is done. asking for discharge, later in day asks for discharge tomorrow. needs to take care of some personal business before looking for work. states he is feeling better physically. no requests or complaints otherwise. per staff, noon CIWA was 9 yesterday, got one mg of ativan. since then, CIWAs 4 to 0 range. anx/dep 06/09. denies SI/HI/AVH. c/o insomnia /2 vivid nightmares. slept well with PRNs. Mental Status Exam Mental Status Exam Narrative: A&O. adequately dressed and groomed. street clothes, up and about the unit. good eye contact, attentive. No Tics or Tremors. No abnormal involuntary movements. Calm, cooperative. Non-pressured speech, spontaneous with regular rate and rhythm, normal loudness and prosody, increased amount. No prolonged speech latency or dysarthria. affect is constricted. no SI/HI/AVH expressed. Thoughts are coherent, organized, if somewhat circumstantial/tangential. No known cognitive or memory impairment. Insight/ Judgment fair and adequate. Diagnostics Vital Signs (24Hr): Vital Signs - 24 hr 10/04/22 20:02 10/05/22 09:05 Temperature 97.5 F 98.3 F Pulse Rate 89 75 Respiratory Rate 18 17 Blood Pressure 109/64 115/65 Pulse Oximetry 98 98 Oxygen Delivery Method Room Air Room Air BMI result Body Mass Index 25.8 Labs Results: 10/01/22 20:47 10/01/22 20:47 Medications Medications Current Medications Acetaminophen (Acetaminophen 325 Mg Tablet) 650 mg PO Q6H PRN PRN Reason: Headache/Pain Mild Scale (1-3) Last Admin: 10/05/22 02:35 Dose: 650 mg Al Hydroxide/Mg Hydroxide (Magnesium Hydrox/Alum Hydrox 30 Ml Oral.Susp) 30 ml PO Q6H PRN PRN Reason: Heartburn/Nausea Albuterol Sulfate (Albuterol Sulfate 90 Mcg 8 Gm Inhaler) 2 puff INHALE Q4H PRN PRN Reason: Wheezing Baclofen (Baclofen 20 Mg Tablet) 20 mg PO TID PRN PRN Reason: Muscle Spasm Last Admin: 10/05/22 16:07 Dose: 20 mg Clonidine HCl (Clonidine Hcl 0.2 Mg Tablet) 0.2 mg PO TID DENYS; Protocol Last Admin: 10/05/22 16:04 Dose: 0.2 mg Fluticasone Propionate (Fluticasone Propionate 100 Mcg Blst.W.Dev) 2 puff INHALE RBID DENYS Last Admin: 10/05/22 09:04 Dose: Not Given Hydroxyzine HCl (Hydroxyzine Hcl 50 Mg Tablet) 50 mg PO Q6H PRN PRN Reason: Anxiety Last Admin: 10/05/22 16:07 Dose: 50 mg Loperamide HCl (Loperamide Hcl 2 Mg Capsule) 4 mg PO Q6H PRN PRN Reason: diarrhea Lorazepam (Lorazepam 1 Mg Tablet) 2 mg PO Q4H PRN PRN Reason: ciwa 13-17 Last Admin: 10/04/22 01:50 Dose: 2 mg Lorazepam (Lorazepam 1 Mg Tablet) 1 mg PO Q4H PRN PRN Reason: ciwa 7-12 Last Admin: 10/04/22 12:15 Dose: 1 mg Magnesium Hydroxide (Milk Of Magnesia 30 Ml Oral.Susp) 30 ml PO DAILY PRN PRN Reason: Constipation Nicotine (Nicotine 21 Mg Patch.Td24) 21 mg TRANSDERMA DAILY PRN PRN Reason: nicotine craving Nicotine Polacrilex (Nicotine Polacrilex 2 Mg Gum) 2 mg BUCCAL Q2H PRN PRN Reason: nicotine craving Ondansetron HCl (Ondansetron Odt 4 Mg Tab.Rapdis) 4 mg TRANSLINGU Q6H PRN PRN Reason: nausea Pregabalin (Pregabalin 50 Mg Capsule) 50 mg PO BID DENYS Trazodone HCl (Trazodone Hcl 50 Mg Tablet) 50 mg PO BEDTIME PRN PRN Reason: Insomnia Last Admin: 10/05/22 02:35 Dose: 50 mg Allergies Allergies Allergy/AdvReac Type Severity Reaction Status Date / Time pollen extracts [POLLEN] Allergy Intermediate SEASONAL Verified 09/13/21 17:11 tramadol [TRAMADOL] Allergy Unknown LOST Verified 09/13/21 17:11 TASTE,TONGUE SWELLING Assessment & Plan Assessment & Plan (1) Polysubstance abuse: Status: Acute Code(s): F19.10 - Other psychoactive substance abuse, uncomplicated (2) PTSD (post-traumatic stress disorder): Status: Acute Code(s): F43.10 - Post-traumatic stress disorder, unspecified Plan Pt is a 42-year-old male who carries a dx of polysubstance abuse, PTSD. He presented to [facility] on 10/01/2022 due to SI with a plan to jump off a bridge.?Precipitating factors include homelessness, from his , and addicted to oxycodone.?Pt has been abusing ?K56? pink oxycodone pills daily for the past month. Using cocaine, $50 daily. His utox positive for fentanyl, cocaine, amphetamines, and cannabis. He has also been abusing alcohol, 4-5 fireballs daily. Placed on CIWA and COWs. Pt has been med non-adherent. Per [facility] crisis eval, he has referral for [facility] services. Remote hx of IPLOC in 2012. Hx of depression, SI, aggression, and impulsivity. Plan: 10/03: will increase clonidine to 0.2 mg TID for hyperarousal, agitation. Pt declines further med adjustment at this time. 10/04: start lyrica 25 BID for neuropathic pain. otherwise continue current mgmt. 10/05: increase lyrica to 50 BID. DC detox protocols. discharge tomorrow per pt request. I spent ___35___ minutes with the patient and/or on the patient floor today, greater than?50% of which was spent counseling/coordinating care. Reason for contiued inpatient stay Substantial Risk for: inability to function and rapid decompensation
[2022-10-05 20:10] VITALS: BP 112/58; PULSE 81; RESP 16; TEMP 36.6; O2SAT 96
[2022-10-05] MEDS: Pregabalin 50 MG CAPSULE PO (20:15)
[2022-10-06] MEDS: hydrOXYzine HCL 50 MG TABLET PO (03:03)
[2022-10-06] MEDS: cloNIDine HCL 0.2 MG TABLET PO (08:57)
[2022-10-06] MEDS: Fluticasone Propionate 100 MCG BLST.W.DEV 2 PUFF INHALE (08:57)
[2022-10-06] MEDS: Pregabalin 50 MG CAPSULE PO (08:57)
[2022-10-06 09:18] VITALS: BP 123/72; PULSE 82; RESP 15; TEMP 36.6; O2SAT 98
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
== END 2022-10-06 12:00 | disposition home or self-care (01) | DRG 755 ==
LOC: HO.ED 21:18 → HO.PADLT16 10-02 16:54
PROVIDERS: Physician Assistant; Admitting Provider Registered Nurse; Emergency Provider Emergency Medicine Emergency Medical Services; Visit Provider Psychiatry & Neurology Psychiatry
DX: F43.12 Post-traumatic stress disorder, chronic (principal); R45.851 Suicidal ideations; E78.00 Pure hypercholesterolemia, unspecified; F17.210 Nicotine dependence, cigarettes, uncomplicated; J45.909 Unspecified asthma, uncomplicated; F19.10 Other psychoactive substance abuse, uncomplicated; I10 Essential (primary) hypertension; Z20.822 Contact with and (suspected) exposure to COVID-19; Z23 Encounter for immunization; Z88.5 Allergy status to narcotic agent; Z79.51 Long term (current) use of inhaled steroids; Z79.899 Other long term (current) drug therapy
CPT/HCPCS: 0241U; 36415; 80053; 80061; 80143; 80179; 80307; 81003; 82077; 82607; 82746; 83036; 83735; 84439; 84443; 85025; 90686; 93005; 99285

== ENCOUNTER 2023-01-29 14:04 | Emergency (ER) | payer MEDICAID, SELFPAY ==
[2023-01-29 14:49] VITALS: BP 140/102; PULSE 94; RESP 16; TEMP 36.7; O2SAT 98; BMI 28.0
--- NOTE | 2023-01-29 14:52 | ED_ITS ---
HPI - Overdose General Chief Complaint: Overdose Stated Complaint: Overdose per EMS Time Seen by Provider: 01/29/23 14:11 Source: patient Mode of arrival: ambulatory Limitations: no limitations History of Present Illness HPI Narrative: 42-year-old male with a history of polysubstance abuse who presents to the ER after an unintentional overdose. Patient reports at 1 of his friends gave him a pill which he believes to be an opiate. The patient crushed the pill and snorted it. He was found by a bystander to be not breathing. he did require 8 mg of Narcan prior to arrival. On arrival patient is alert and oriented. He denies any suicidal thoughts. He tells me he does not use opiates on a regular basis. He is not interested in speaking to any disaster recovery specialist or going home with Narcan. He has no physical complaints. patient states shit happens, I live a life of sex, drugs and rock and roll. Related Data Previous Rx's Medication Instructions Recorded albuterol sulfate 90 mcg/actuation 2 puff PO Q4-6H PRN Wheezing 30 10/06/22 aerosol inhaler (ProAir HFA) days #1 inhaler clonidine HCl 0.2 mg tablet 0.2 mg PO TID 30 days #90 tabs 10/06/22 fluticasone propionate 110 2 puff PO BID 30 days #1 inhaler 10/06/22 mcg/actuation HFA aerosol inhaler (Flovent HFA) hydroxyzine HCl 50 mg tablet 50 mg PO Q6H PRN Anxiety 30 days 10/06/22 #30 tabs nicotine 21 mg/24 hr daily 21 mg transdermal DAILY PRN 10/06/22 transdermal patch nicotine craving 28 days #28 ea pregabalin 50 mg capsule (Lyrica) 50 mg PO BID 30 days #60 caps 10/06/22 trazodone 50 mg tablet 50 mg PO BEDTIME 30 days #30 tabs 10/06/22 Allergies Allergy/AdvReac Type Severity Reaction Status Date / Time pollen extracts [POLLEN] Allergy Intermediate SEASONAL Verified 09/13/21 17:11 tramadol [TRAMADOL] Allergy Unknown LOST Verified 09/13/21 17:11 TASTE,TONGUE SWELLING Review of Systems Review of Systems: Yes all other systems are reviewed and are negative Constitutional: Constitutional: Reports no additional constitutional complaints, Denies body ache(s), Denies chills, Denies fever(s), Denies headache(s) and Denies weakness Eyes: Eyes: Reports no additional eye complaints and Denies change in vision ENT: Reports system reviewed and no additional complaints, except as documented, Denies dizziness, Denies headache(s), Denies nasal congestion, Denies nasal discharge and Denies neck pain Cardiovascular: Cardiovascular: Reports no additional cardiovascular complaints, Denies chest pain, Denies leg edema and Denies dyspnea Respiratory: Respiratory: Reports no additional respiratory complaints, Denies cough and Denies dyspnea Gastrointestinal: Gastrointestinal: Reports no additional gastrointestinal complaints, Denies abdominal pain, Denies diarrhea, Denies nausea and Denies vomiting Genitourinary: Genitourinary: Denies urinary incontinence Musculoskeletal: Musculoskeletal: Reports no additional musculoskeletal complaints, Denies back pain, Denies arthralgias, Denies joint swelling, Denies neck pain, Denies numbness and Denies tingling Integumentary/Breasts: Skin/Breast: Reports system reviewed and no additional complaints, except as docu and Denies rash Neurologic: Reports system reviewed and no additional complaints, except as documented, Denies Abnormal speech present, Denies dizziness, Denies headache(s), Denies numbness, Denies tingling and Denies weakness PMFSH Past Medical History Attestation statement: The following information was validated with the patient. Source: old records reviewed and nursing notes reviewed Medical History Asthma Back pain with history of spinal surgery Diabetes Failed spinal cord stimulator HTN (hypertension) Hypercholesteremia Surgical History H/O discectomy Social History Social History Household Members: None and Other Household Members Other:: Homeless Housing: Homeless Do you presently have visiting nurse or other home services: No Patient Tobacco Use Status: Current everyday Tobacco user Tobacco use type: Cigarette Cigarette Packs Per Day: 1 Cigarettes Per Day: 20.0 e-Cigarette/Vaping Use: Never Used Second Hand Smoke Exposure: No Substance Use Type: Crack/Cocaine and Marijuana Advance Directives: No Advance Directives Information Provided: No service: No Sexual orientation: Don't Know Physical Exam Vital Signs: Vital Signs: Last Vital Signs Temp 98.1 F 01/29/23 14:49 Pulse 94 01/29/23 14:49 Resp 16 01/29/23 14:49 BP 140/102 H 01/29/23 14:49 Pulse Ox 98 01/29/23 14:49 O2 Del Method Room Air 01/29/23 14:49 BMI result Body Mass Index 28.0 Const: General: cooperative, healthy appearing, comfortable and no acute distress Orientation/consciousness: patient oriented x3 Limitations: no limitations HEENT: Head: Yes normal to inspection Ears: hearing grossly normal bilaterally General nose exam: Normal external nose present Face and sinus: Yes normal facial exam Mouth: Normal oral and palatal mucosa present Throat: Yes posterior oropharynx normal Eyes: General: appearance normal, both eyes and all related structures Pupils: Equal, round and reactive pupils present Neck: Neck: Yes normal visual inspection Chest: Chest palpation & inspection: normal inspection of the chest Resp: Effort & Inspection: normal respiratory effort Auscultation: clear to auscultation bilaterally Cardio: Rate: regular rate Rhythm: regular rhythm Peripheral pulses: Peripheral pulses 2+ throughout GI: Inspection: Yes normal to inspection Palpation (GI): Soft to palpation and nontender Auscultation: normal bowel sounds Back/Spine/Pelvis: Thoracic/Lumbar Spine: thoracic and lumbar spine normal to inspection Skin: General skin exam: no rashes or lesions noted Neuro: General: patient oriented x3, no focal motor deficits and normal sensation to monofilament Cranial nerves: Yes Equal, round and reactive pupils present Cognition (Neuro): normal cognition Speech: No Abnormal speech present Gait exam (Neuro): Normal gait present Motor exam (neuro): 5/5 motor strength present throughout Extrem: General: Yes normal to inspection Course Course Course Narrative: Patient now wants to speak to disaster recovery specialist. If he wants to leave he can. No SI/HI, alert and oriented. Reevaluation(s) Reevaluation #1: 1700-Sign out to Jeane BROWN pending above. Medical Decision Making Medical Decision Making [facility] Narrative: 42-year-old male here after unintentional overdose requiring 8 mg of intranasal Narcan prior to arrival Patient on arrival is alert/oriented. VSS. Walking with a steady gait He is refusing to speak to disaster recovery specialist and does not want to go home with any Narcan or outpatient resources Differential Diagnosis Differential Diagnoses: The differential diagnosis associated with the presentation includes Unintentional overdose Discharge Plan Discharge Clinical Impression: Drug overdose Patient Disposition: Home, Self-Care Instructions: Adult Overdose (ED) Additional Instructions: You needed 8 mg of Narcan as you are not breathing It was offered for you to speak to 1 of our disaster recovery specialist is but you declined this We also offered to send you home with Narcan but you declined this Please do not do drugs Prescriptions: No Action trazodone 50 mg Tablet 50 mg PO BEDTIME 30 Days Qty: 30 0RF hydroxyzine HCl 50 mg Tablet 50 mg PO Q6H PRN (Reason: Anxiety) 30 Days Qty: 30 0RF clonidine HCl 0.2 mg Tablet 0.2 mg PO TID 30 Days Qty: 90 0RF Protocol: Hold for SBP< HOLD for SBP < : 90 pregabalin [Lyrica] 50 mg Capsule 50 mg PO BID 30 Days Qty: 60 0RF nicotine 21 mg/24 hr Patch 24 Hour 21 mg transdermal DAILY PRN (Reason: nicotine craving) 28 Days Qty: 28 0RF albuterol sulfate [ProAir HFA] 90 mcg/actuation HFA aerosol inhaler 2 puff PO Q4-6H PRN (Reason: Wheezing) 30 Days Qty: 1 0RF fluticasone propionate [Flovent HFA] 110 mcg/actuation HFA aerosol inhaler 2 puff PO BID 30 Days Qty: 1 0RF
--- NOTE | 2023-01-29 15:59 | PC.NURSE ---
cindy her daughter and hcp,
[2023-01-29 18:16] LABS: COVID-19 Test Negative (Negative); IDNOW Serial# 6674DD1D
--- NOTE | 2023-01-29 18:25 | PC.NURSE ---
Security to Unit after Pt in bathroom with door tied shut. Pt to be discharged home. Encouraged Pt to call [facility] for a detox bed.
== END 2023-01-29 18:36 | disposition home or self-care (01) ==
PROVIDERS: Emergency Medicine Emergency Medical Services; Emergency Provider Emergency Medicine
DX: R40.4 Transient alteration of awareness (principal); T50.901A Poisoning by unspecified drugs, medicaments and biological substances, accidental (unintentional), initial encounter; F19.10 Other psychoactive substance abuse, uncomplicated; Y92.410 Unspecified street and highway as the place of occurrence of the external cause; Z20.822 Contact with and (suspected) exposure to COVID-19; E11.9 Type 2 diabetes mellitus without complications; I10 Essential (primary) hypertension; E78.00 Pure hypercholesterolemia, unspecified; F17.210 Nicotine dependence, cigarettes, uncomplicated; Z79.899 Other long term (current) drug therapy
CPT/HCPCS: 87635; 99283; 99284

== ENCOUNTER 2023-07-02 17:58 | Emergency (ER) | payer MEDICAID, SELFPAY ==
[2023-07-02 18:20] VITALS: BP 125/82; PULSE 69; RESP 18; O2SAT 99; BMI 28.7
--- NOTE | 2023-07-02 18:20 | ED.BACK ---
HPI - Back Pain/Injury General Chief Complaint: Back Pain/Injury Stated Complaint: lower back pain Time Seen by Provider: 07/02/23 18:25 Source: patient, RN notes reviewed and old records reviewed Mode of arrival: ambulatory History of Present Illness HPI Narrative: 42yo M w/PMHx PTSD, polysubstance abuse, Asthma, DM, HLD, s/p diskectomy '13 c/o acute on chronic right sided low back pain x few days worsening today with radiation down RLE. Admits to similar sx in the past. denies injury/fall/trauma, numbness/tingling, weakness, urinary constant retention, fever, active IVDU, hematuria, dysuria. Currently on Vivitrol elicited complaint: back pain Related Data Previous Rx's Medication Instructions Recorded albuterol sulfate 90 mcg/actuation 2 puff PO Q4-6H PRN Wheezing 30 10/06/22 aerosol inhaler (ProAir HFA) days #1 inhaler clonidine HCl 0.2 mg tablet 0.2 mg PO TID 30 days #90 tabs 10/06/22 fluticasone propionate 110 2 puff PO BID 30 days #1 inhaler 10/06/22 mcg/actuation HFA aerosol inhaler (Flovent HFA) hydroxyzine HCl 50 mg tablet 50 mg PO Q6H PRN Anxiety 30 days 10/06/22 #30 tabs nicotine 21 mg/24 hr daily 21 mg transdermal DAILY PRN 10/06/22 transdermal patch nicotine craving 28 days #28 ea pregabalin 50 mg capsule (Lyrica) 50 mg PO BID 30 days #60 caps 10/06/22 trazodone 50 mg tablet 50 mg PO BEDTIME 30 days #30 tabs 10/06/22 acetaminophen 500 mg tablet 500 mg PO Q6H PRN fever or pain 07/02/23 (Tylenol Extra Strength) #14 tabs cyclobenzaprine 5 mg tablet 5 mg PO Q8H PRN pain (scale score 07/02/23 7-10) 5 days #14 tabs lidocaine 5 % topical patch 1 patch topical DAILY PRN pain #30 07/02/23 (Lidoderm) ea naproxen 500 mg tablet 500 mg PO BID PRN pain 10 days #20 07/02/23 tabs prednisone 20 mg tablet 40 mg PO DAILY 5 days #10 tabs 07/02/23 Allergies Allergy/AdvReac Type Severity Reaction Status Date / Time pollen extracts [POLLEN] Allergy Intermediate SEASONAL Verified 09/13/21 17:11 tramadol [TRAMADOL] Allergy Unknown LOST Verified 09/13/21 17:11 TASTE,TONGUE SWELLING Review of Systems Review of Systems: Constitutional: No Fever, No Chills ENT/Mouth: No Ear Pain, No Nasal Congestion, No sore throat, No Rhinorrhea, No Swallowing Difficulty Cardiovascular: No Chest Pain, No SOB Respiratory: No Cough Gastrointestinal: No Nausea, No Vomiting, No Abdominal pain Genitourinary: No Dysuria, No Urinary Frequency, No Hematuria, No Urinary Incontinence/retention, No Urgency, No Flank Pain Musculoskeletal: + joint pain, No Myalgias, No Joint Swelling Skin: No Skin Lesions, No rash Neuro: No Weakness, No Numbness, No Paresthesias Yes all other systems are reviewed and are negative Constitutional: Constitutional: Reports as per HPI Neurologic: Denies Sensory deficit (Neuro) [facility] Past Medical History Attestation statement: The following information was validated with the patient. Source: old records reviewed Medical History Asthma Back pain with history of spinal surgery Diabetes Failed spinal cord stimulator HTN (hypertension) Hypercholesteremia Surgical History H/O discectomy Social History Social History Household Members: None and Other Household Members Other:: Homeless Housing: Homeless Do you presently have visiting nurse or other home services: No Patient Tobacco Use Status: Current everyday Tobacco user Tobacco use type: Cigarette Cigarette Packs Per Day: 1 Cigarettes Per Day: 20.0 e-Cigarette/Vaping Use: Never Used Second Hand Smoke Exposure: No Substance Use Type: Opiates service: No Sexual orientation: Don't Know Physical Exam Vital Signs: Vital Signs: Last Vital Signs Pulse 69 07/02/23 18:20 Resp 18 07/02/23 18:20 BP 125/82 07/02/23 18:20 Pulse Ox 99 07/02/23 18:20 O2 Del Method Room Air 07/02/23 18:20 BMI result Body Mass Index 28.7 Const: General: cooperative, healthy appearing and no acute distress Orientation/consciousness: patient oriented x3 Limitations: no limitations HEENT: Head: Yes normal to inspection and Yes atraumatic Ears: hearing grossly normal bilaterally General nose exam: Normal external nose present Face and sinus: Yes normal facial exam Eyes: General: appearance normal, both eyes and all related structures EOM: EOMs intact bilaterally Neck: Neck: Yes normal visual inspection and Yes no meningeal signs Resp: Effort & Inspection: normal respiratory effort and no respiratory distress Cardio: Rate: regular rate GI: Inspection: Yes normal to inspection Palpation (GI): Soft to palpation, nontender, no guarding and not rigid : General: Yes no CVA tenderness Back/Spine/Pelvis: Other: No midline cervical/thoracic/lumbar spinous tenderness/step-off or deformity. + noted R lower thoracic/lumbar MSK spasming/swelling and ttp noted, no erythema/ecchymosis or rash Back: no CVA tenderness Skin: Rashes: no rashes Wounds: no wounds Neuro: Other: Strength intact throughout. No saddle anesthesia. Sensation intact to light touch. Neurovascular intact distally General: patient oriented x3, gait normal, tone normal, moves all extremities, no meningeal signs and no focal motor deficits Cranial nerves: Yes CN's II-XII intact bilaterally Gait exam (Neuro): Normal gait present Motor exam (neuro): 5/5 motor strength present throughout Sensory Exam: No Sensory deficit (Neuro) Extrem: General: Yes normal to inspection Medical Decision Making Medical Decision Making MDM Narrative: 42yo M w/PMHx PTSD, polysubstance abuse, Asthma, DM, HLD, s/p diskectomy '13 c/o acute on chronic right sided low back pain x few days worsening today with radiation down RLE. On exam vital signs stable, NAD, nontoxic appearing, physical exam as noted above with appreciable spasm pain/swelling to right low back MSK region. No CVAT. Ambulating with steady gait, no red flag symptoms. No rash. Concern for sciatica vs acute on chronic back pain/spasming/strain. Low suspicion for renal stone/pyelo, cauda equina/cord compression, epidural abscess, renal stone/pyelo Plan: IM Toradol, RX pain medication, PCP follow-up Please refer to course for remaining clinical decision making, interpretation of labs/imaging results, and discussions with consultants and/or family members. Results discussed with patient including worrisome signs and symptoms and strict return precautions, and when to return to the emergency department. They verbalized understanding and feel safe for discharge at this time. Differential Diagnosis Differential Diagnoses: The differential diagnosis associated with the presentation includes As above External Record Review External record reviewed: Inpatient record, Office record, Outpatient record, Prior outpatient labs, Prior outpatient radiology, Primary care record and Outside ED record Tests considered The following testing was considered but not selected: As above Prescription Management I considered prescription management with: Pain Medication Social Determinants Patient?s care significantly limited by Social Determinants of Health including: Low income, Alcoholism and drug addiction in family and Problems related to primary support group Discharge Plan Discharge Clinical Impression: Lumbar radiculopathy Patient Disposition: Home, Self-Care Instructions: Lumbar Radiculopathy (ED) Additional Instructions: Your pain is likely musculoskeletal Flexeril is a muscle relaxer, take at night as it makes you drowsy, do not drive, drink alcohol, or operate machinery while taking it Prednisone as a steroid please take as prescribed Naproxen as an anti-inflammatory / pain medication, take with food Lidoderm patches are numbing patches, apply to painful area In addition take Tylenol at home If symptoms persist or worsen, pain becomes unbearable, you developed urinary retention or incontinence, or weakness return to the ED Prescriptions: New prednisone 20 mg tablet 40 mg PO DAILY 5 Days Qty: 10 0RF acetaminophen [Tylenol Extra Strength] 500 mg tablet 500 mg PO Q6H PRN (Reason: fever or pain) Qty: 14 0RF lidocaine [Lidoderm] 5 % adhesive patch,medicated 1 patch topical DAILY MDD remove after 12 hours PRN (Reason: pain) Qty: 30 0RF Rx Instructions: leave on most painful area for up to 12 hrs naproxen 500 mg tablet 500 mg PO BID PRN (Reason: pain) 10 Days Qty: 20 0RF cyclobenzaprine 5 mg tablet 5 mg PO Q8H PRN (Reason: pain (scale score 7-10)) 5 Days Qty: 14 0RF No Action trazodone 50 mg Tablet 50 mg PO BEDTIME 30 Days Qty: 30 0RF hydroxyzine HCl 50 mg Tablet 50 mg PO Q6H PRN (Reason: Anxiety) 30 Days Qty: 30 0RF clonidine HCl 0.2 mg Tablet 0.2 mg PO TID 30 Days Qty: 90 0RF Protocol: Hold for SBP< HOLD for SBP < : 90 pregabalin [Lyrica] 50 mg Capsule 50 mg PO BID 30 Days Qty: 60 0RF nicotine 21 mg/24 hr Patch 24 Hour 21 mg transdermal DAILY PRN (Reason: nicotine craving) 28 Days Qty: 28 0RF albuterol sulfate [ProAir HFA] 90 mcg/actuation HFA aerosol inhaler 2 puff PO Q4-6H PRN (Reason: Wheezing) 30 Days Qty: 1 0RF fluticasone propionate [Flovent HFA] 110 mcg/actuation HFA aerosol inhaler 2 puff PO BID 30 Days Qty: 1 0RF Referrals: [facility] [Primary Care Provider] - 5 days
[2023-07-02] MEDS: Ketorolac Tromethamine 30 MG/ML VIAL IM (18:29)
== END 2023-07-02 18:39 | disposition home or self-care (01) ==
LOC: HO.ED 18:37
PROVIDERS: Emergency Provider Student in an Organized Health Care Education/Training Program
DX: M54.16 Radiculopathy, lumbar region (principal); E11.9 Type 2 diabetes mellitus without complications; I10 Essential (primary) hypertension; E78.00 Pure hypercholesterolemia, unspecified; F17.210 Nicotine dependence, cigarettes, uncomplicated; Z79.899 Other long term (current) drug therapy
CPT/HCPCS: 96372; 99283; 99284; J1885

== ENCOUNTER 2023-07-22 16:47 | Emergency (ER) | payer MEDICAID, OTHER, SELFPAY ==
[2023-07-22 16:51] VITALS: BP 146/100; PULSE 75; RESP 18; TEMP 36.7; O2SAT 98; BMI 28.7
--- NOTE | 2023-07-22 16:54 | ED.GENADULT ---
HPI - General Adult General Chief complaint: Psychiatric Symptoms Stated complaint: Crisis Time Seen by Provider: 07/22/23 17:20 Source: patient Mode of arrival: ambulatory Limitations: no limitations History of Present Illness HPI narrative: patient comes to the emergency room complaining of suicidal ideation, depression. Patient states that he is in a program for addiction. Patient states that he relapsed and is using cocaine again. Patient denies homicidal ideation. Related Data Previous Rx's Medication Instructions Recorded albuterol sulfate 90 mcg/actuation 2 puff PO Q4-6H PRN Wheezing 30 10/06/22 aerosol inhaler (ProAir HFA) days #1 inhaler Allergies Allergy/AdvReac Type Severity Reaction Status Date / Time pollen extracts [POLLEN] Allergy Intermediate SEASONAL Verified 09/13/21 17:11 tramadol [TRAMADOL] Allergy Unknown LOST Verified 09/13/21 17:11 TASTE,TONGUE SWELLING Review of Systems Review of Systems: Constitutional : No Weight loss, No Fever, No Chills, No Night Sweats, No Fatigue, No Malaise ENT/Mouth : No Hearing loss, No Ear Pain, No Nasal Congestion, No Sinus Pain, No Hoarseness, No sore throat, No Rhinorrhea, No Swallowing Difficulty Eyes: No Eye Pain, No Swelling, No Redness, No Foreign Body, No Discharge, No Vision Changes Cardiovascular : No Chest Pain, No SOB, No Dyspnea on Exertion, No Orthopnea, No Edema, No Palpitations Respiratory : No Cough, No Sputum, No Wheezing, No Smoke Exposure, No Dyspnea Gastrointestinal : No Nausea, No Vomiting, No Diarrhea, No Constipation, No abdominal Pain, No Hematochezia, No Melena Genitourinary : no irregular bleeding, No Dysuria, No Urinary Frequency, No Hematuria, No Urinary Incontinence, No Urgency, No Flank Pain, No Urinary Flow Changes, No Hesitancy Musculoskeletal : Complaining of chronic back pain,No joint pain, No Myalgias, No Joint Swelling Skin : No Skin Lesions, No rash Neuro : No Weakness, No Numbness, No Paresthesias, No Loss of Consciousness, No Dizziness, No Headache Psych : No Anxiety/Panic, complaining of depression, vague SI, no HI Heme/Lymph: No Bruising, No Bleeding,No Lymphadenopathy Endocrine : No Polyuria, No Polydipsia, No Temperature Intolerance PMFSH Past Medical History Medical History Failed spinal cord stimulator Back pain with history of spinal surgery Hypercholesteremia HTN (hypertension) Asthma Diabetes Surgical History H/O discectomy Social History Social History Household Members: None and Other Household Members Other:: Homeless Housing: Homeless Do you presently have visiting nurse or other home services: No Patient Tobacco Use Status: Current everyday Tobacco user Tobacco use type: Cigarette Cigarette Packs Per Day: 1 Cigarettes Per Day: 20.0 e-Cigarette/Vaping Use: Never Used Second Hand Smoke Exposure: No Substance Use Type: Opiates Advance Directives: No Advance Directives Information Provided: No service: No Sexual orientation: Don't Know Physical Exam ED Vital Signs: Vital Signs - 24 hr 07/22/23 16:51 07/22/23 18:44 Temperature 98.1 F Pulse Rate 75 79 Respiratory Rate 18 22 H Blood Pressure 146/100 H 131/79 Pulse Oximetry 98 100 Oxygen Delivery Method Room Air Room Air BMI result Body Mass Index 28.7 Const Other: Appearance: Alert. Oriented X3. No acute distress. Eyes: Pupils equal, round and reactive to light. ENT: Pharynx normal. Neck: Normal inspection. Neck supple. No lymph nodes noted. No crepitus CVS: Normal heart rate and rhythm. Pulses normal. Normal S1 and S2 Respiratory: No respiratory distress. Breath sounds normal. No Wheezing. No rales Abdomen: Soft and nontender. No rigidity. No distention. Skin: Skin warm and dry. Normal skin color. Normal skin turgor. Extremities: No lower extremity edema. No Lacerations. No Rash Neuro: Oriented X 3. No motor deficit. No sensory deficit. Moving all extremities. No slurred speech. CN 2 through 12 grossly intact Psych: calm, cooperative, normal affect coherent Course Course Course Narrative: This is an RME: Additional HPI, ROS, PE not included below will be deferred to primary provider. 42 yo m presents w/ depression, polysubstance abuse ( last used crack on tuesday), SI thinking of a plan . No hallucinations, HI. No medical complaints Plan- med clearance. Medications Administered Discontinued Medications Generic Name Dose Route Start Last Admin Trade Name Freq PRN Reason Stop Dose Admin Cyclobenzaprine HCl 10 mg 07/22/23 17:31 07/22/23 18:12 Cyclobenzaprine Hcl 10 Mg Tablet PO 07/22/23 17:32 10 mg ONCE ONE Administration Medical Decision Making Medical Decision Making [facility] Narrative: - my interpretation of labs: Hematology unremarkable - care team consult pending - physician observation started at 17:40 - patient requesting IM Flexeril. Within not have IM Flexeril in the hospital. Patient was provided with p.o. Flexeril. -19:37, care team evaluated the patient. Patient states that he has only suicidal after using crack cocaine. At this moment, patient states that he is no longer suicidal or homicidal. He respite was offered to the patient, patient declined. per Care Team, it is safe for patient to be discharged home, patient agrees with plan. Differential Diagnosis Differential Diagnoses: The differential diagnosis associated with the presentation includes ( polysubstance abuse, alcohol abuse, anxiety, depression) Admission/Observation Consideration of admission/observation: Escalation of care including admission/observation considered ( patient will remain under observation on till the care team evaluate the patient and plans disposition) Consult Healthcare Provider Management of the patient was discussed with: Behavioral Health Provider Lab Data [facility] Lab Attestation statement: I reviewed the patient's lab results. 07/22/23 17:00 07/22/23 17:00 Labs: Lab Results 07/22/23 07/22/23 Range/Units 17:00 17:23 WBC 5.2 (4.8-10.8) X10*3/uL RBC 4.86 (4.60-5.80) X10*6/uL Hgb 14.2 (14.0-18.0) g/dl Hct 44.1 (42.0-52.0) % MCV 90.7 (80.0-98.0) fL MCH 29.2 (27.0-33.0) pg MCHC 32.2 (31.0-36.0) g/dl RDW 12.6 (11.0-16.0) % Plt Count 211 (160-400) X10*3/uL MPV 10.7 (9.4-12.4) fL Immature Gran % (Auto) 0.2 (0.0-0.4) % Neut % (Auto) 63.5 (45-73) % Lymph % (Auto) 24.3 (20-40) % [place] % (Auto) 7.6 (2-11) % Eos % (Auto) 3.6 (0-4) % Baso % (Auto) 0.8 (0-2) % Lymph # (Auto) 1.3 (1.2-4.9) X10*3/uL [place] # (Auto) 0.4 (0.1-1.2) X10*3/uL Eos # (Auto) 0.2 (0.0-0.4) X10*3/uL Baso # (Auto) 0.0 (0.0-0.2) X10*3/uL Abs Immat Gran (auto) 0.01 (0.00-0.03) X10*3/uL Absolute Neuts (auto) 3.3 (2.0-8.3) x10*3/uL Absolute Nucleated RBC 0.000 (0.0-0.012) X10*3/uL Nucleated RBC % (auto) 0.0 (0.0-0.2) /100WBC Sodium 140 (135-145) mmol/L Potassium 4.2 (3.3-5.1) mmol/L Chloride 104 (96-108) mmol/L Carbon Dioxide 25 (22-29) mmol/L Anion Gap 15 (12-20) BUN 10 (9-16) mg/dL Creatinine 0.87 (0.5-1.4) mg/dL Estim Creat Clear Calc 122.7 Estimated GFR > 60 Random Glucose 103 (60-115) mg/dL Calcium 9.6 (8.4-10.2) mg/dL Magnesium 2.1 (1.6-2.6) mg/dL Total Bilirubin 0.3 (0.0-1.0) mg/dL AST 24 (5-37) U/L ALT 18 (0-40) U/L Alkaline Phosphatase 75 (39-117) U/L Total Protein 7.6 (6.5-8.0) g/dL Albumin 4.2 (3.5-5.0) g/dL Urine Color Yellow Urine Appearance Clear Urine pH 5.5 (5.0-9.0) Ur Specific [place] 1.020 (1.005-1.025) Urine Protein Negative (Neg-Trace) mg/dL Urine Glucose (UA) Negative (Negative) mg/dL Urine Ketones Negative (Negative) mg/dL Urine Blood Negative (Negative) Urine Nitrite Negative (Negative) Ur Leukocyte Esterase Negative (Negative) Salicylates < 5.0 L (15-30) mg/dL Urine Opiates Screen Not Detected (Not Detect) Urine Fentanyl Screen Not Detected (Not Detect) Acetaminophen < 17 (<30) mcg/mL Ur Barbiturates Screen Not Detected (Not Detect) Ur Phencyclidine Scrn Not Detected (Not Detect) Ur Amphetamines Screen Not Detected (Not Detect) U Benzodiazepines Scrn Not Detected (Not Detect) Urine Cocaine Screen POSITIVE H (Not Detect) U Marijuana (THC) Screen POSITIVE H (Not Detect) Ethyl Alcohol < 10 mg/dL Critical Care Time Critical Care Time Critical Care Time: Yes Total Critical Care Time: 30 Attestation: I have personally provided critical care time. Time includes review of lab data, radiology results, discussion with consultants, and monitoring for potential decompensation. Intervention performed as documented. Discharge Plan Discharge Clinical Impression: Polysubstance abuse, Suicidal ideation Patient Disposition: Home, Self-Care Instructions: Polysubstance Abuse (ED) Additional Instructions: Please follow-up with your primary care physician tomorrow. If you have any worsening or new symptoms, please return to the emergency room or call 911 Prescriptions: No Action albuterol sulfate [ProAir HFA] 90 mcg/actuation HFA aerosol inhaler 2 puff PO Q4-6H PRN (Reason: Wheezing) 30 Days Qty: 1 0RF Interventions: [place]-Suicide Risk Severity Scale Last Done: 07/22/23 17:20
[2023-07-22 17:29] LABS: MANUAL DIFF FLAG NO
--- NOTE | 2023-07-22 17:30 | PC.NURSE ---
Perry dumont presented to the emergency dept with increasing depression, SI w/o a plan and back pain that is chronic in nature. Calm and cooperative he was changed over and belongings were logged. Labs pending. Appetite good.
[2023-07-22 17:35] LABS: Basophils Percent Auto 0.8 % (0-2); Eosinophils Absolute Auto 0.2 X10*3/uL (0.0-0.4); Eosinophils Percent Auto 3.6 % (0-4); Hematocrit 44.1 % (42.0-52.0); Hemoglobin 14.2 g/dl (14.0-18.0); Imm Gran Abs Auto 0.01 X10*3/uL (0.00-0.03); Imm Gran Pct Auto 0.2 % (0.0-0.4); Lymphocytes Absolute Auto 1.3 X10*3/uL (1.2-4.9); Lymphocytes Percent Auto 24.3 % (20-40); Mean Corpuscular HGB Conc 32.2 g/dl (31.0-36.0); Mean Corpuscular Hemoglobin 29.2 pg (27.0-33.0); Mean Corpuscular Volume 90.7 fL (80.0-98.0); Mean Platelet Volume 10.7 fL (9.4-12.4); Monocytes Absolute Auto 0.4 X10*3/uL (0.1-1.2); Monocytes Percent Auto 7.6 % (2-11); Neutrophils Absolute Auto 3.3 x10*3/uL (2.0-8.3); Neutrophils Percent Auto 63.5 % (45-73); Platelet Count 211 X10*3/uL (160-400); Red Blood Count 4.86 X10*6/uL (4.60-5.80); Red Cell Distribution Width 12.6 % (11.0-16.0); White Blood Count 5.2 X10*3/uL (4.8-10.8)
--- OUTSIDE RECORDS SUMMARY | 2023-07-22 17:38 | XMS_ITS | Continuity of Care Document ---
Author Name Unknown Organization [facility] ter Address [address] [place] [id number] Care Team Providers Care Credit Authorizer Name Role Phone Hunter BROWN, Kimberly Nieslen Primary Care Physician [phone] [place] [facility] [facility] [place]16[place] - 04/16/[address] [id number]- Encounter Diagnosis Back pain(Final) - 04/16/21 Discharge Disposition: A-D/C Home Attending Physician: Jody Dumas MD Admitting Physician: Jody Dumas MD Referring Physician: Not on Staff, Referring MD Allergies, Adverse Reactions, Alerts Substance Reaction Severity Status traMADol Active Medications Lyrica 100 mg oral capsule 1 capsule, By Mouth, 3 times a day, 0 Refills, Maintenance, Capsule Start Date: 02/11/11 Status: Ordered OxyContin 60 mg oral tablet, extended release 1 tablet, By Mouth, 3 times a day, tablet, 0 Refills, Maintenance, ER Tablet Start Date: 02/11/11 Status: Ordered Percocet-5/325 325 mg-5 mg oral tablet 1 tablet, By Mouth, Every 4 hours, PRN for pain, tablet, 0 Refills, Maintenance, Tablet Start Date: 02/11/11 Status: Ordered Vital Signs Most recent to oldest [Reference Range]: 1 2 3 Oxygen Saturation [94-100 %] 100 % (04/16/21 8:02 PM) 100 % (04/16/21 6:10 PM) 100 % (04/16/21 4:57 PM) Pulse Rate [55-90 bpm] 68 bpm (04/16/21 8:02 PM) 68 bpm (04/16/21 6:10 PM) 96 bpm *H* (04/16/21 4:57 PM) Blood Pressure [90-138/55-84 mm Hg] 116/74mm Hg (04/16/21 8:02 PM) 125/82mm Hg (04/16/21 6:10 PM) Respiratory Rate [16-30 br/min] 16 br/min (04/16/21 8:02 PM) 18 br/min (04/16/21 6:10 PM) Temperature [96.8-100.4 DegF] 97.6 DegF (04/16/21 8:02 PM) 99.3 DegF (04/16/21 6:10 PM) Mode of Delivery (Oxygen) Room air (04/16/21 8:02 PM) Room air (04/16/21 6:10 PM) Blood pressure sites Arm, right (04/16/21 8:02 PM) Arm, right (04/16/21 6:10 PM) Temperature Route Oral (04/16/21 8:02 PM) Oral (04/16/21 6:10 PM)
[2023-07-22 17:39] LABS: Appearance Urine Clear; Color Urine Yellow; Glucose Urine UA Negative (Negative); Leukocyte Esterase Urine Negative (Negative); Nitrite Urine Negative (Negative); PH 5.5 (5.0-9.0); Urine Blood Negative (Negative); Urine Ketones Negative (Negative); Urine Protein Negative (Neg-Trace)
[2023-07-22 17:52] LABS: Amphetamine Screen Urine Not Detected (Not Detect); Barbiturates, Urine Not Detected (Not Detect); Benzodiazepines Screen Urine Not Detected (Not Detect); Cannabinoid Screen Urine POSITIVE (Not Detect); Cocaine Screen Urine POSITIVE (Not Detect); Fentanyl, urine Not Detected (Not Detect); Opiate Screen Urine Not Detected (Not Detect); Phencyclidine Screen Urine Not Detected (Not Detect)
[2023-07-22 17:59] LABS: Acetaminophen LAB < 17 mcg/mL (<30); Alanine Aminotransferase 18 U/L (0-40); Albumin Level 4.2 g/dL (3.5-5.0); Alkaline Phosphatase 75 U/L (39-117); Anion Gap 15 (12-20); Aspartate Amino Transferase 24 U/L (5-37); Bilirubin Total 0.3 mg/dL (0.0-1.0); Blood Urea Nitrogen 10 mg/dL (9-16); Calcium 9.6 mg/dL (8.4-10.2); Carbon Dioxide 25 mmol/L (22-29); Chloride 104 mmol/L (96-108); Creatinine Clr Calc Pharmacy 122.7; Estimated Glomerular Filt Rate > 60; Ethanol < 10 mg/dL; Glucose Random 103 mg/dL (60-115); Magnesium 2.1 mg/dL (1.6-2.6); Potassium 4.2 mmol/L (3.3-5.1); Salicylate < 5.0 mg/dL (15-30); Sodium 140 mmol/L (135-145); Total Protein 7.6 g/dL (6.5-8.0)
[2023-07-22] MEDS: Cyclobenzaprine HCl 10 MG TABLET PO (18:12)
[2023-07-22 18:44] VITALS: BP 131/79; PULSE 79; RESP 22; O2SAT 100
== END 2023-07-22 20:52 | disposition home or self-care (01) ==
PROVIDERS: Physician Assistant; Emergency Provider Emergency Medicine
DX: F33.1 Major depressive disorder, recurrent, moderate (principal); F14.10 Cocaine abuse, uncomplicated; F12.10 Cannabis abuse, uncomplicated; R45.851 Suicidal ideations; Z79.899 Other long term (current) drug therapy
CPT/HCPCS: 36415; 80053; 80143; 80179; 80307; 81003; 83735; 85025; 99284; S9485

== ENCOUNTER 2025-07-03 18:50 | Emergency (ER) | payer OTHER, SELFPAY ==
[2025-07-03 19:01] VITALS: BP 148/69; PULSE 77; RESP 15; TEMP 36.8; O2SAT 99; BMI 28.8
--- NOTE | 2025-07-03 19:01 | ED_ITS ---
HPI - General Adult General Chief complaint: Abdominal Pain Stated complaint: upper abd pain Related Data Previous Rx's ?Medication ?Instructions ?Recorded albuterol sulfate 90 mcg/actuation 2 puff PO Q4-6H PRN Wheezing 30 10/06/22 aerosol inhaler (ProAir HFA) days #1 inhaler Allergies Allergy/AdvReac Type Severity Reaction Status Date / Time pollen extracts (POLLEN) Allergy Intermediate SEASONAL Verified 07/03/25 19:03 tramadol (TRAMADOL) Allergy Unknown LOST Verified 07/03/25 19:03 TASTE,TONGUE SWELLING PMFSH Past Medical History Medical History Failed spinal cord stimulator Back pain with history of spinal surgery Hypercholesteremia HTN (hypertension) Asthma Diabetes Surgical History H/O discectomy Social History Social History Household Members: None and Other Household Members Other:: Homeless Housing: Homeless Do you presently have visiting nurse or other home services: No Patient Tobacco Use Status: Current everyday Tobacco user Tobacco use type: Cigarette Cigarette Packs Per Day: 1 Cigarettes Per Day: 20.0 e-Cigarette/Vaping Use: Never Used Second Hand Smoke Exposure: No Substance Use Type: Opiates Advance Directives: No Advance Directives Information Provided: No Advance Directives on File: No Do you have a plan to hurt others: No Plan service: No Sexual orientation: Don't Know Physical Exam ED Vital Signs: Vital Signs - 24 hr 07/03/25 19:01 Temperature 98.3 F Pulse Rate 77 Respiratory Rate 15 Blood Pressure 148/69 H Pulse Oximetry 99 Oxygen Delivery Method Room Air BMI result Body Mass Index 28.8 Course Course Course Narrative: This is a Rapid Medical Examination (RME) performed by Brigitte Kilgore PA-C in triage. Full HPI, ROS, assessment and treatment plan per primary provider in the Main ED. 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 no N/V/D. Plan: labs Reevaluation(s) Reevaluation #1: Patient left the emergency department before myself or any of the other clinicians could review or explain physical exam findings, test results, need or lack there of for additional testing, treatment options, or a treatment plan. Medical Decision Making Lab Data 07/03/25 20:19 07/03/25 20:19 Labs: Lab Results 07/03/25 Range/Units 20:19 WBC 5.3 (4.8-10.8) X10*3/uL RBC 4.59 L (4.60-5.80) X10*6/uL Hgb 14.0 (14.0-18.0) g/dl Hct 41.4 L (42.0-52.0) % MCV 90.2 (80.0-98.0) fL MCH 30.5 (27.0-33.0) pg MCHC 33.8 (31.0-36.0) g/dl RDW 12.9 (11.0-16.0) % Plt Count 173 (160-400) X10*3/uL MPV 9.7 (9.4-12.4) fL Immature Gran % (Auto) 1.1 H (0.0-0.4) % Neut % (Auto) 59.5 (45-73) % Lymph % (Auto) 24.5 (20-40) % [place] % (Auto) 9.1 (2-11) % Eos % (Auto) 4.9 H (0-4) % Baso % (Auto) 0.9 (0-2) % Lymph # (Auto) 1.3 (1.2-4.9) X10*3/uL [place] # (Auto) 0.5 (0.1-1.2) X10*3/uL Eos # (Auto) 0.3 (0.0-0.4) X10*3/uL Baso # (Auto) 0.1 (0.0-0.2) X10*3/uL Abs Immat Gran (auto) 0.06 H (0.00-0.03) X10*3/uL Absolute Neuts (auto) 3.2 (2.0-8.3) x10*3/uL Absolute Nucleated RBC 0.000 (0.0-0.012) X10*3/uL Nucleated RBC % (auto) 0.0 (0.0-0.2) /100WBC Sodium 142 (135-145) mmol/L Potassium 4.7 (3.3-5.1) mmol/L Chloride 107 (96-108) mmol/L Carbon Dioxide 27 (22-29) mmol/L Anion Gap 13 (12-20) BUN 14 (9-16) mg/dL Creatinine 0.99 (0.5-1.4) mg/dL Estim Creat Clear Calc 105.8 Estimated GFR > 60 Random Glucose 76 (60-115) mg/dL Calcium 9.3 (8.4-10.2) mg/dL Magnesium 2.4 (1.6-2.6) mg/dL Total Bilirubin 0.2 (0.0-1.0) mg/dL AST 41 H (5-37) U/L ALT 28 (0-40) U/L Alkaline Phosphatase 78 (39-117) U/L Total Protein 7.5 (6.5-8.0) g/dL Albumin 4.3 (3.5-5.0) g/dL Lipase 24 (8-78) U/L Discharge Plan Discharge Clinical Impression: Abdominal pain Patient Disposition: Left W/O Completing Treatment Prescriptions: No Action albuterol sulfate [ProAir HFA] 90 mcg/actuation HFA aerosol inhaler 2 puff PO Q4-6H PRN (Reason: Wheezing) 30 Days Qty: 1 0RF Discharge Date/Time: 07/03/25 22:37
[2025-07-03 20:24] LABS: MANUAL DIFF FLAG NO
[2025-07-03 20:25] LABS: Hematocrit 41.4 % (42.0-52.0); Hemoglobin 14.0 g/dl (14.0-18.0); Imm Gran Abs Auto 0.06 X10*3/uL (0.00-0.03); Imm Gran Pct Auto 1.1 % (0.0-0.4); Lymphocytes Absolute Auto 1.3 X10*3/uL (1.2-4.9); Mean Corpuscular HGB Conc 33.8 g/dl (31.0-36.0); Mean Corpuscular Hemoglobin 30.5 pg (27.0-33.0); Mean Corpuscular Volume 90.2 fL (80.0-98.0); NRBC Abs Auto 0.000 X10*3/uL (0.0-0.012); NRBC Pct Auto 0.0 /100WBC (0.0-0.2); Platelet Count 173 X10*3/uL (160-400); Red Blood Count 4.59 X10*6/uL (4.60-5.80); White Blood Count 5.3 X10*3/uL (4.8-10.8)
[2025-07-03 20:38] LABS: Alanine Aminotransferase 28 U/L (0-40); Albumin Level 4.3 g/dL (3.5-5.0); Alkaline Phosphatase 78 U/L (39-117); Anion Gap 13 (12-20); Aspartate Amino Transferase 41 U/L (5-37); Blood Urea Nitrogen 14 mg/dL (9-16); Calcium 9.3 mg/dL (8.4-10.2); Carbon Dioxide 27 mmol/L (22-29); Chloride 107 mmol/L (96-108); Creatinine Clr Calc Pharmacy 105.8; Estimated Glomerular Filt Rate > 60; Lipase 24 U/L (8-78); Magnesium 2.4 mg/dL (1.6-2.6); Potassium 4.7 mmol/L (3.3-5.1); Sodium 142 mmol/L (135-145); Total Protein 7.5 g/dL (6.5-8.0)
--- OUTSIDE RECORDS SUMMARY | 2025-07-03 22:39 | XMS_ITS | Encounter Summary ---
Author Organization [employer] Address [address] [place] [address] Care Team Providers Care Air Pollution Control Engineer Name Role Phone Radha Khoury Primary Care Provider [phone] Encounter Details Date Type Department Care Team ([facility] st Contact Info) Description 08/14/2024 Telephone [facility] MEDICINE [address] [place] [address] Radha Khoury FNP [address] [place], [place] [id number] Social History Tobacco Use Types Packs/Day Years Used Date Smoking Tobacco: Every Day Cigarettes Smokeless Tobacco: Never Alcohol Use Standard Drinks/Week Comments Never 0 (1 standard drink = 0.6 oz pur e alcohol) Housing Stability Answer Date Recorded What is your housing situation today? I do not have housing (Staying with others, in a hotel, in a skilled nursing, living outside on the street, on a beach, in a car, or in a park 08/08/[address] you li ve. Do you have problems with any of the following? None of the above 08/08/2023 Food Insecurity Answer Date Recorded Within the past 12 months, y ou worried that your food would run out before you got money to buy more: Sometimes True 2022 Within the past 12 months,th e food you bought just didn't last and you didn't have enough money to get more: Sometimes True 08/19/2023 Transportation Answer Date Recorded In the past 12 months, has l ack of transportation kept you from medical appts, meetings, work or from getting things needed for daily living? No 08/19/2023 Utilities Answer Date Recorded In the past 12 months, has t he electric, gas, oil or water company threatened to shut off services in your home? No 08/19/2023 Sex and Gender Information Value Date Recorded Sex Assigned at Male 08/30/2022 10:18 AM EDT Legal Sex Male 10:18 AM EDT Gender Identity Male 08/30/2022 10:18 AM EDT Sexual Orientation Straight 08/30/2022 10 :18 AM EDT documented as of this encounter Miscellaneous Notes * Telephone Encounter - Natalee Bishop RN - 08/14/2024 9:58 AM EDT TC to patient no answer on phone, I had to leave a VM message. DTA paperwork cannot be completed aspatient last had an appointment here at [facility] on 03/18/23 and then there were 3 No Show appointments after that 03/18/23 appointment. Requested he contact [facility] and make an appointment so I can fill out paperwork. documented in this encounter Plan of Treatment Upcoming Encounters Date Type Department Care Team (Late st Contact Info) Description 07/29/2025 2:30 PM EDT Office Visit [facility] MED & PEDS [address] [place] [address] Radha Khoury FNP [address] [place] [address] documented as of this encounter Visit Diagnoses Not on filedocumented in this encounter Care Teams Air Pollution Control Engineer Relationship Specialty Start Date End Date Radha Khoury FNP [address] [place] [address] PCP - General Family Medicine 06/07/23 Levi Alvarado Pharmaceutical Botanist 09/26/24 documented as of this encounter
--- OUTSIDE RECORDS SUMMARY | 2025-07-03 22:39 | XMS_ITS | Encounter Summary ---
Author Organization [employer] Address [address] [place] [address] Care Team Providers Care Lan Engineer Name Role Phone Radha Khoury SKEIN SPOOLER Primary Care Provider [phone] Encounter Details Date Type Department Care Team (Latest Contact Info) Description 06/28/2025 Travel Social History Tobacco Use Types Packs/Day Years Used Date Smoking Tobacco: Every Day Cigarettes Smokeless Tobacco: Never Alcohol Use Standard Drinks/Week Comments Never 0 (1 standard drink = 0.6 oz pur e alcohol) Depression Answer Date Recorded Patient Health Questionnaire-9 Score 0 09/30/2024 Patient Health Questionnaire-9 Score 0 09/30/2024 Last PHQ-9: Questionnaire Data Not on file 1 12/01/2023 Housing Stability Answer Date Recorded What is your housing situation today? I do not have housing (Staying with others, in a hotel, in a fdc, living outside on the street, on a beach, in a car, or in a park 09/30/[address] you li ve. Do you have problems with any of the following? None of the above 09/30/2024 Food Insecurity Answer Date Recorded Within the past 12 months, y ou worried that your food would run out before you got money to buy more: Never True 09/30/2024 Within the past 12 months,th e food you bought just didn't last and you didn't have enough money to get more: Never True 10/2023 Transportation Answer Date Recorded In the past 12 months, has l ack of transportation kept you from medical appts, meetings, work or from getting things needed for daily living? No 09/30/2024 Utilities Answer Date Recorded In the past 12 months, has t he [employer], [employer], oil or water company threatened to shut off services in your home? No 08/19/2023 Depression Answer Date Recorded Patient Health Questionnaire-2 Score 0 09/30/2024 Internet Access Answer Date Recorded Internet Access Q1 No 09/30/2024 Internet Access Q2 Not on file 09/30/2024 Sex and Gender Information Value Date Recorded Sex Assigned at Male 08/30/2022 10:18 AM EDT Legal Sex Male 10:18 AM EDT Gender Identity Male 08/30/2022 10:18 AM EDT Sexual Orientation Straight 08/30/2022 10 :18 AM EDT documented as of this encounter Plan of Treatment Upcoming Encounters Date Type Department Care Team (Late st Contact Info) Description 07/29/2025 2:30 PM EDT Office Visit [facility] MED & PEDS [address] [place] [address] Radha Khoury FNP [address] [place] [address] documented as of this encounter Visit Diagnoses Not on filedocumented in this encounter Additional Health Concerns Assessment Noted Time PHQ-9 Depression Total Score: 0 09/30/20 24 2:53 PM EST documented as of this encounter Care Teams Lan Engineer Relationship Specialty Start Date End Date Radha Khoury FNP [address] [place] [address] PCP - General Family Medicine 06/07/23 Levi Alvarado Automotive Hardware Engineer 09/26/24 documented as of this encounter
--- OUTSIDE RECORDS SUMMARY | 2025-07-03 22:39 | XMS_ITS | Clinical Summary ---
Author Organization [employer] Address [address] [place] [address] 7[address] [place] [address] Care Team Providers Care Fibreglass Gun Hand Name Role Phone Radha Khoury SHILPI Primary Care Provider [phone] Allergies Active Allergy Reactions Criticality Noted Date Comments Tramadol 02/16/2013 Other reaction(s): tongue swelling Medications Vivitrol injection 3 Active lidocaine (Lidoderm) 5 % patch APPLY 1 PATCH TOPICALLY TO SKIN, LEAVE ON FOR 12 HOURS AND OFF FOR 12 HOURS DIRECTED NEEDED FOR PAIN 3 Active ammonium lactate (Lac-Hydrin) 12 % lotion APPLY TOPICALLY TO DRY parts OF FEET NEEDED FOR DRY SKIN 225 g 3 3 Active loratadine (Claritin) 10 MG tabletIndication s:Seasonal allergies Take 1 tablet (10 mg) by mouth if needed each day for allergies. 90 tablet 3 4 08/10/20 25 Active hydrocortisone 1 % cream APPLY TOPICALLY TO EARS TWICE DAILY NEEDED FOR ITCHING AND IRRITATION. USE FOR UP TO 1 TO 2 WEEKS 28 g 1 4 Active albuterol (Ventolin HFA) 108 (90 Base) MCG/ACT inhalerIndicatio ns:Moderate persistent asthma without complication Take 2 puffs by Inhalation route 4-6 hours as neededtake 2 puffs by Inhalation route 4-6 hours as needed for wheezing or shortness of breath 18 g 3 4 Active montelukast (Singulair) 10 MG tabletIndication s:Moderate persistent asthma without complication Take 1 tablet (10 mg) by mouth at bedtime. 90 tablet 1 4 Active ibuprofen 600 MG tabletIndication s:Chronic bilateral low back pain, unspecified whether sciatica present,Failed spinal cord stimulator, sequela Take 1 tablet (600 mg) by mouth every 8 (eight) hours if needed (pain or fever). 100 tablet 3 4 09/26/20 25 Active pregabalin (Lyrica) 50 MG capsuleIndicatio ns:Chronic bilateral low back pain, unspecified whether sciatica present Take 1 capsule (50 mg) by mouth 2 times daily. 60 capsule 3 4 Active nicotine polacrilex (Nicorette) 2 MG gumIndications:S lizbeth Chew 1 each (2 mg) if needed for smoking cessation. Recommended guidelines: Weeks 1-6: Chew 1 piece of gum every 1-2 hrs (max 24 pieces/day) Weeks 7-9: Chew 1 piece of gum every 2-4 hrs Weeks 10-12: Chew 1 piece of gum every 4-8 hrs 2 each 3 4 Active nicotine (Nicoderm CQ) 14 MG/24HR patchIndications :Smoker Apply 1 patch on the skin (one) time each day at the same time x 8 weeks. 56 patch 4 Active nicotine (Nicoderm CQ) 7 MG/24HR patchIndications :Smoker After completion of 14mg/day patch: Apply 1 patch on the skin (one) time each day at the same time x 2 weeks. 14 patch 4 Active Mometasone Furoate (Asmanex HFA) 200 MCG/ACT aerosolIndicatio ns:Moderate persistent asthma without complication 1 puff po bid 13 g 11 4 Active buPROPion XL (Wellbutrin XL) 150 MG 24 hr tablet Take 150 mg by mouth in the morning. 4 Active sertraline (Zoloft) 50 MG tablet Take 100 mg by mouth in the morning. 4 Active Ketotifen Fumarate 0.035 % solution Administer 1 drop into both eyes 2 times daily. 5 mL 11 5 Active Active Problems Patient Care Coordination No te Formatting of this note migh t be different from the original. Power Electronics Engineer: Levi Alvarado Contact Information: [phone] Problem Noted Date Diagnosed Date Failed spinal cord stimulator, sequela 4 Assessment & Plan (09/30/2024 3:08 PM EST): - Per pt, had spinal cord stimulator implanted in 2011. Had been following with [facility] and [facility]. Mr. Nascimento reports that the stimulator was disconnected while he was incarcerated and it has been non-functional since. Also believes it may not be in original alignment. - Referral to re-establish with [facility] sent on 09/26/24 - Continues with Lyrica 50mg BID. Reviewed med safety and SE - Encouraged combination pharm and non-pharm modalities for pain control Seasonal allergies 09/30/2024 Overview (09/30/2024): Cont loratadine 10mg daily PRN Healthcare maintenance 07/20/2023 Overview (09/30/2024): Optometry: following with [facility], wears glasses. Next appt: Dec 2024 Dental: pending Colonoscopy: referral placed 09/26/24 Prediabetes 10/12/2022 Overview (09/30/2024): Lab Results Component Value Date HGBA1C 5.9 09/26/2024 - Encouraged lifestyle interventions History of seizure 10/12/2022 Chronic back pain 12/11/2015 Assessment & Plan (09/30/2024 3:26 PM EST): - No red flag symptoms - See failed spinal cord stimulator, sequela Depressive disorder 12/11/2015 Assessment & Plan (09/30/2024 3:21 PM EST): - PHQ9 score: 0 - GAD7 score: 0 - Following with therapist (every 2 weeks) and psychiatrist from [facility] - Reports feeling stable overall Dyslipidemia 12/11/2015 Moderate persistent asthma 12/11/2015 Overview (09/30/2024): Maintenance: Asmanex (Mometasone) 200 mcg/act HFA - 1 puff BID, montelukast 10mg nightly Rescue: Albuterol PRN Assessment & Plan (09/30/2024 3:20 PM EST): Start mometasone HFA. 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 Reviewed med use and safety Resolved Problems Problem Noted Date Diagnosed Date Resolved Date Dyschromia 12/11/2015 09/26/2024 Essential hypertension 12/11/201509/26 Encounters Date Type Department Care Team Description 06/28/2025 Travel from Last 3 Months Immunizations Immunization Administration Dates Next Due Hep A, Adult 11/15/2014,04/21/2012 Hep B, adult 11/15/2014,06/01/2012,04/21/2012 Influenza injectable quadriv alent IIV4 with preservative 08/22/2017 Influenza injectable quadriv alent preservative free 09/27/2023,10/02/2022,12/29/2018,07/30,08/01/2015 Influenza, IIV3, injectable 08/31/2012 Influenza, seasonal, injecta ble, preservative free 08/10/2024 Moderna Covid-19 Vaccine 6+ Bivalent 10/28/2022 Pfizer Covid-19 Vaccine 12+ 08/10/2024, 3 Pneumococcal Conjugate PCV 20 09/26/2024 Pneumococcal Polysaccharide PPSV23 08/02/2014, TD (adult), 2 Lf tetanus tox oid, preservative free, adsorbed 10/31/2004 Td (adult), 5 Lf tetanus tox oid, preservative free, adsorbed 12/05/2014 Tdap 01/30/2021,12/13/2012 Social History Tobacco Use Types Packs/Day Years Used Date Smoking Tobacco: Every Day Cigarettes Smokeless Tobacco: Never Tobacco Cessation:Ready to Q uit: Yes; Counseling Given: Yes Alcohol Use Standard Drinks/Week Comments Never 0 [...] with others, in a hotel, in a residential, living outside on the street, on a [...] Orientation Straight 08/30/2022 10 :18 AM EDT Last Filed Vital Signs Vital Sign Reading Time Taken Comments Blood Pressure 132/83 09/26/2024 10:00 AM EST Pulse 82 09/26/2024 10:00 AM EST Temperature 36.3 C (97.4 F) 09/26/2024 10:00 AM EST Respiratory Rate 19 09/26/2024 10:00 AM EST Oxygen Saturation 99% 09/26/2024 10:00 AM EST Inhaled Oxygen Concentration - - Weight 91.6 kg (202 lb) 09/26/2024 10:00 AM EST Height 177.8 cm (5' 10 ) 09/26/2024 10:00 AM EST Body Mass Index 28.98 09/26/2024 10:00 AM EST Plan of Treatment Upcoming Encounters Date Type Department Care Team (Late st Contact Info) Description 07/29/2025 2:30 PM EDT Office Visit [facility] MED & PEDS [address] [place], [place] [phone] Radha Khoury, STUDIO MUSICIAN [address] [place] [address] Health Maintenance Due Date Last Done Comments CT Colonography 1978 Colonoscopy 1978 Colorectal Cancer Screening 1978 FIT DNA/Cologuard 1978 FIT 1978 FOBT 1978 Sigmoidoscopy 1978 Disability Screening 1978 Family Planning (PISQ) 1993 SDOH Screening 03/18/2024 03/18/2023 Influenza Vaccine (#1) 2025 , 09/27/2023, 10/02/2022, Additional history exists Alcohol/Substance Use Screening 09/26/2025 09/26/2024 Diabetes: Hemoglobin A1C 09/26/2025 09/26/2024, 11/02 Depression Screening 09/30/2025 09/30/2024, 09/30/20 Tobacco Screening 12/21/2025 12/21/2024 Lipid Panel 11/30/2026 11/30/2021 Zoster Vaccines (1 of 2) 2028 DTaP/Tdap/Td Vaccines (4 - Td or Tdap) 01/30/2031 01/30/2021, 12/05/2014, 12/13/2012, Additional history exists RSV Patients and Patients Aged 60 years or older (1 - 1-dose 75+ series) 2053 Hepatitis A Vaccines Aged Out 11/15/2014, 04/21/20 12 No longer eligible based on patient's age to complete this topic Hepatitis B Vaccines Completed 11/15/2014, 06/01/2012, 04/21/2012 HIV Screening Completed 12/20/2019 Hepatitis C Screening Completed 12/20/2019 COVID-19 Vaccine Completed 08/10/2024, , 10/28/2022 Pneumococcal Vaccine: Pediatrics (0 to 5 Years) and At-Risk Patients (6 to 49) Years Completed 09/26/2024, 08/02/2014, 09/08/2012 HIB Vaccines Aged Out No longer eligi ble based on patient's age to complete this topic HPV Vaccines Aged Out No longer eligi ble based on patient's age to complete this topic IPV Vaccines Aged Out No longer eligi ble based on patient's age to complete this topic Meningococcal B Vaccine Aged Out No l onger eligible based on patient's age to complete this topic Meningococcal Vaccine Aged Out No jeanne bebeto eligible based on patient's age to complete this topic RSV under 20 months Aged Out No longe r eligible based on patient's age to complete this topic Rotavirus Vaccines Aged Out No longer eligible based on patient's age to complete this topic Procedures Procedure Name Priority Date/Time Associated Diagnosis Comments POCT GLYCATED HEMOGLOBIN, TOTAL Routine 09/26/2024 10:08 AM EST Prediabetes LIPID PANEL, STANDARD Routine 11/30/2021 8:37 AM EST [facility] HISTORICAL HEPATITIS C ANTIBODY RFLX Routine 12/20/2019 11:15 AM EST [facility] HISTORICAL HIV AB/AG Routine 12/20/2019 11:15 AM EST from Last 3 Months or Most Recently Relevant to Health Maintenance Results * POCT HGB A1C (09/26/2024 10:08 AM EST) Hemoglobin A1C 5.9 4.0 - 6.0 % QC Media Lot # [id number] Lot# Expiration Date [id number] Blood 09/26/2024 10:0 8 AM EST Radha Navarroradha STUDIO MUSICIAN POINT OF CARE TEST ENTER/EDIT ORDERABLES Final Result * (ABNORMAL) LIPID PANEL, STANDARD (11/30/2021 8:37 AM EST) Chol/HDLC Ratio 3.9 <5.0 (calc) [facility] Cholesterol, Total 204(H) <200 mg/dL [facility] HDL Cholesterol 52 > OR = 40 mg/dL [facility] LDL Cholesterol 129(H) mg/dL (calc) [facility] Comment: Reference range: <100 Desirable range <100 mg/dL for primary prevention; <70 mg/dL for patients with CHD or diabetic patients with > or = 2 CHD risk factors. LDL-C is now calculated using the Rukhsana calculation, which is a validated novel method providing better accuracy than the Friedewald equation in the estimation of LDL-C. Pradeep COHN et al. LIBAN. 2013;310(19): 0017-0264 (http://education.[employer]/faq/DSI215) Non-HDL Cholesterol 152(H) <130 mg/dL (calc) [facility] Comment: For patients with diabetes plus 1 major ASCVD risk factor, treating to a non-HDL-C goal of <100 mg/dL (LDL-C of <70 mg/dL) is considered a therapeutic option. Triglycerides 122 <150 mg/dL [facility] 11/30/2021 8:37 AM EST Ely Blas SAFETY TRAINER LAB BLOOD ORDERABLES Final Res ult [facility] [address] * HEPATITIS C ANTIBODY RFLX (12/20/2019 11:15 AM EST) Pathologist [facility] HEPATITIS C ANTIBODY NONREACTIVE NONREACTIVE [facility] Comment: Antibodies to HCV not detected; does not exclude early acute HCV infection. 12/20/2019 11:1 5 AM EST Kimberly Harrison NP HISTORICAL/NON ORDERABLE LABS Fi nal Result Performing Organization Address [facility] de Phone Number [facility] [address] * HIV AB/AG (12/20/2019 11:15 AM EST) Pathologist [facility] HIV AG/AB NONREACTIVE NR [facility] Comment: HIV-1 p24 Ag and/or HIV-1/HIV-2 Ab not detected. A test result that is nonreactive does not exclude the possibility of exposure to or infection with HIV-1 and/or HIV-2. Nonreactive results in this assay for individuals with prior exposure to HIV-1 and/or HIV-2 may be due to antigen and antibody levels that are below the limit of detection of this assay. The [employer] HIV Ag/Ab Combo assay result and supplemental assay results should be interpreted in conjunction with the patient's clinical presentation, history and other laboratory results. If the results are inconsistent with clinical evidence, additional testing is suggested to confirm the result. 12/20/2019 11:1 5 AM EST Kimberly Harrison NP HISTORICAL/NON ORDERABLE LABS Fi nal Result Performing Organization Address [facility] [address] from Last 3 Months or Most Recently Relevant to Health Maintenance Insurance [facility] C3 Care Teams Fibreglass Gun Hand Relationship Specialty Start Date End Date Radha Khoury FNP [address] [place] [id number] PCP - General Family Medicine 06/07/23 Levi Alvarado Plumber'S Helper 09/26/24
--- OUTSIDE RECORDS SUMMARY | 2025-07-03 22:39 | XMS_ITS | Encounter Summary ---
Author Organization [employer] Address [address] [place] [address] 7[address] [place] [address] Care Team Providers Care Developmental Education Instructor Name Role Phone Radha Khoury Primary Care Provider [phone] Radha Khoury Primary Care Provider [phone] Encounter Details Date Type Department Care Team (Late Contact Info) Description 05/12/2023 Abstract [facility] [address] [place], [place] [phone] Radha Khoury FNP [address] [place] [address] Social History Tobacco Use Types Packs/Day Years Used Date Smoking Tobacco: Every Day Cigarettes Smokeless Tobacco: Never Alcohol Use Standard Drinks/Week Comments Never 0 (1 standard drink = 0.6 oz pur e alcohol) Sex and Gender Information Value Date Recorded Sex Assigned at Male 08/30/2022 10:18 AM EDT Legal Sex Male 10:18 AM EDT Gender Identity Male 08/30/2022 10:18 AM EDT Sexual Orientation Straight 08/30/2022 10 :18 AM EDT documented as of this encounter Plan of Treatment Upcoming Encounters Date Type Department Care Team (Late Contact Info) Description 07/29/2025 2:30 PM EDT Office Visit [facility] [address] [place], [place] [phone] Radha Khoury FNP [address] [place], [place] [phone] documented as of this encounter Visit Diagnoses Not on filedocumented in this encounter Care Teams Developmental Education Instructor Relationship Specialty Start Date End Date Radha Khoury FNP [address] [place] [address] PCP - General Family Medicine 06/30/22 06/06/23 Radha Khoury FNP [address] [place] [address] PCP - General Family Medicine 06/07/23 Levi Alvarado Insurance Underwriter 09/26/24 documented as of this encounter
== END 2025-07-03 22:37 | disposition left against medical advice (07) ==
PROVIDERS: Physician Assistant Medical; Emergency Provider Emergency Medicine
DX: R10.10 Upper abdominal pain, unspecified (principal); Z53.21 Procedure and treatment not carried out due to patient leaving prior to being seen by health care provider
CPT/HCPCS: 36415; 80053; 83690; 83735; 85025; 99281; 99283

== ENCOUNTER 2025-10-14 13:19 | Outpatient (REF) | payer MEDICAID, SELFPAY ==
[2025-10-14 16:04] LABS: MANUAL DIFF FLAG NO
[2025-10-14 16:12] LABS: Hematocrit 47.3 % (42.0-52.0); Hemoglobin 15.4 g/dl (14.0-18.0); Imm Gran Abs Auto 0.04 X10*3/uL (0.00-0.03); Imm Gran Pct Auto 0.6 % (0.0-0.4); Lymphocytes Absolute Auto 1.4 X10*3/uL (1.2-4.9); Mean Corpuscular HGB Conc 32.6 g/dl (31.0-36.0); Mean Corpuscular Hemoglobin 29.7 pg (27.0-33.0); Mean Corpuscular Volume 91.1 fL (80.0-98.0); NRBC Abs Auto 0.000 X10*3/uL (0.0-0.012); NRBC Pct Auto 0.0 /100WBC (0.0-0.2); Platelet Count 243 X10*3/uL (160-400); Red Blood Count 5.19 X10*6/uL (4.60-5.80); White Blood Count 6.8 X10*3/uL (4.8-10.8)
[2025-10-14 16:36] LABS: Alanine Aminotransferase 32 U/L (0-40); Albumin Level 5.2 g/dL (3.5-5.0); Alkaline Phosphatase 103 U/L (39-117); Anion Gap 12 (12-20); Aspartate Amino Transferase 34 U/L (5-37); Blood Urea Nitrogen 14 mg/dL (9-16); Calcium 10.1 mg/dL (8.4-10.2); Carbon Dioxide 31 mmol/L (22-29); Chloride 104 mmol/L (96-108); Cholesterol 240 mg/dL (<200); Estimated Glomerular Filt Rate > 60; HDL Cholesterol 48 mg/dL (>40); Potassium 4.5 mmol/L (3.3-5.1); Sodium 142 mmol/L (135-145); Total Protein 8.8 g/dL (6.5-8.0); Triglycerides 158 mg/dL (<150)
[2025-10-14 16:49] LABS: Prostate Specific Antigen 0.37 ng/mL (<0.05-4.0)
--- OUTSIDE RECORDS SUMMARY | 2025-10-14 19:17 | XMS_ITS | Clinical Summary ---
Author Organization [employer] Address [address] [facility] 7[address] [place] [address] Care Team Providers Care Junior Sales Assistant Name Role Phone Radha Khoury WEIGHTS AND MEASURES SEALER Primary Care Provider [phone] Allergies Active Allergy Reactions Criticality Noted Date Comments Tramadol 02/16/2013 Other reaction(s): tongue swelling Medications Vivitrol injection 02/10/20 23 Active lidocaine (Lidoderm) 5 % patch APPLY 1 PATCH TOPICALLY TO SKIN, LEAVE ON FOR 12 HOURS AND OFF FOR 12 HOURS DIRECTED NEEDED FOR PAIN 07/05/20 23 Active hydrocortisone 1 % cream APPLY TOPICALLY TO EARS TWICE DAILY NEEDED FOR ITCHING AND IRRITATION. USE FOR UP TO 1 TO 2 WEEKS 28 g 1 08/21/20 24 Active pregabalin (Lyrica) 50 MG capsuleIndicatio ns:Chronic bilateral low back pain, unspecified whether sciatica present Take 1 capsule (50 mg) by mouth 2 times daily. 60 capsule 3 09/26/20 24 Active nicotine polacrilex (Nicorette) 2 MG gumIndications:Jj nieves Chew 1 each (2 mg) if needed for smoking cessation. Recommended guidelines: Weeks 1-6: Chew 1 piece of gum every 1-2 hrs (max 24 pieces/day) Weeks 7-9: Chew 1 piece of gum every 2-4 hrs Weeks 10-12: Chew 1 piece of gum every 4-8 hrs 2 each 3 09/26/20 24 Active nicotine (Nicoderm CQ) 14 MG/24HR patchIndications :Smoker Apply 1 patch on the skin (one) time each day at the same time x 8 weeks. 56 patch 09/26/20 24 Active nicotine (Nicoderm CQ) 7 MG/24HR patchIndications :Smoker After completion of 14mg/day patch: Apply 1 patch on the skin (one) time each day at the same time x 2 weeks. 14 patch 09/26/20 24 Active buPROPion XL (Wellbutrin XL) 150 MG 24 hr tablet Take 150 mg by mouth in the morning. 10/01/20 24 Active sertraline (Zoloft) 50 MG tablet Take 100 mg by mouth in the morning. 10/01/20 24 Active Ketotifen Fumarate 0.035 % solution Administer 1 drop into both eyes 2 times daily. 5 mL 11 12/21/19 25 Active albuterol (Ventolin HFA) 108 (90 Base) MCG/ACT inhalerIndicatio ns:Moderate persistent asthma without complication Take 2 puffs by Inhalation route 4-6 hours as neededtake 2 puffs by Inhalation route 4-6 hours as needed for wheezing or shortness of breath 18 g 3 10/10/2025 4:50 PM EST 07/12/20 25 Active loratadine (Claritin) 10 MG tabletIndication s:Seasonal allergies Take 1 tablet (10 mg) by mouth if needed each day for allergies. 90 tablet 3 10/10/2025 4:50 PM EST 07/12/20 25 026 Active montelukast (Singulair) 10 MG tabletIndication s:Moderate persistent asthma without complication Take 1 tablet (10 mg) by mouth at bedtime. 90 tablet 1 10/10/2025 4:50 PM EST 07/12/20 25 Active Mometasone Furoate (Asmanex HFA) 200 MCG/ACT aerosolIndicatio ns:Moderate persistent asthma without complication 1 puff po bid 13 g 11 10/10/2025 4:51 PM EST 07/12/20 25 Active clotrimazole (Lotrimin) 1 % cream Apply topically to affected areas 2 times daily for 2-4 weeks. 30 g 07/18/20 25 Active Salicylic Acid 40 % pads Apply topically per package instructions as needed for plantar wart 4 each 2 07/18/20 25 Active ammonium lactate (Lac-Hydrin) 12 % lotion APPLY TOPICALLY TO DRY PARTS OF FEET NEEDED FOR DRY SKIN 225 g 07/18/20 25 Active albuterol (2.5 MG/3ML) 0.083% nebulizer solution Take 3 mL (2.5 mg) by nebulization every 4 (four) hours if needed for wheezing. 75 mL 11 10/10/2025 4:50 PM EST 07/30/20 25 026 Active ibuprofen 600 MG tabletIndication s:Chronic bilateral low back pain, unspecified whether sciatica present,Failed spinal cord stimulator, sequela Take 1 tablet (600 mg) by mouth every 8 (eight) hours if needed (pain or fever). 100 tablet 3 09/26/20 24 025 Active Problems Patient Care Coordination No te Formatting of this note migh t be different from the original. Lap Winding Machine Operator: Levi Alvarado Contact Information: [phone] Problem Noted Date Diagnosed Date Failed spinal cord stimulator, sequela Assessment & Plan (2025 9:12 AM EDT): - Per pt, had spinal cord stimulator [...] pharm and non-pharm modalities for pain control - Referral to re-establish with [facility] placed 07/30/25 Assessment & Plan (09/30/2024 3:08 PM EST): [...] 10mg daily PRN Healthcare maintenance 07/20/2023 Overview (2025): Optometry: following with [facility]: pending Colonoscopy: referral placed 09/26/24, re-sent 07/29/25 Prediabetes 10/12/2022 Overview (09/30/2024): Lab Results Component Value Date HGBA1C 5.9 09/26/2024 - Encouraged lifestyle interventions History of seizure 10/12/2022 Chronic back pain 12/11/2015 Assessment & Plan (2025 9:11 AM EDT): - No red flag symptoms - See failed spinal cord stimulator, sequela Assessment & Plan (09/30/2024 3:26 PM EST): - No red flag symptoms - See failed spinal cord stimulator, sequela Depressive disorder 12/11/2015 Assessment & Plan (2025 9:11 AM EDT): - Previously following with therapist (every 2 weeks) and psychiatrist from [facility] - Denies acute concern - Referral for BE placed Assessment & Plan (09/30/2024 3:21 PM EST): - PHQ9 score: 0 - GAD7 score: 0 - Following with therapist (every 2 weeks) and psychiatrist from [facility] - Reports feeling stable overall Dyslipidemia 12/11/2015 Moderate persistent asthma 12/11/2015 Overview (09/30/2024): Maintenance: Asmanex (Mometasone) 200 mcg/act HFA - 1 puff BID, montelukast 10mg nightly Rescue: Albuterol PRN Assessment & Plan (2025 9:13 AM EDT): - Unclear if he continues using maintenance inhaler - LCTA bilat on exam today - Plan: nebulizer provided on site today, plan to cont with current regimen and follow up if symptoms not well controlled Assessment & Plan (09/30/2024 3:20 PM EST): Start mometasone HFA. 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 16 Smoker 12/11/2015 Assessment & Plan (2025 9:14 AM EDT): -Cigg/day: 5-10 cigg/day -Age started: - -Total years smoking: - -Pack year history: - Encouraged smoking cessation resources such as pharmacomtherapy, [facility] smoking cessation group, and [facility] pharmacy smoking cessation clinic -Referred to [facility] for lung CA screening: N/A, starting at 50 y/o Assessment & Plan (09/30/2024 3:14 PM EST): -Cigg/day: 3 cigg/day -Age started: discuss at f/up -Total years smoking: - -Pack year history: - Encouraged smoking cessation resources such as pharmacomtherapy, [facility] smoking cessation group, and [facility] pharmacy smoking cessation clinic -START NRT patches and gum -Referred to [facility] for lung CA screening: N/A, starting at 50 y/o Assessment & Plan (03/20/2023 6:34 PM EDT): Start NRT patches 21mg/day. Reviewed med use and safety Resolved Problems Problem Noted Date Diagnosed Date Resolved Date Dyschromia 12/11/2015 09/26/2024 Essential hypertension 12/11/201509/26 Encounters Date Type Department Care Team Description 09/18/2025 3:00 PM EST Immunization [facility] [address] [place] [id number] Melodie Reese RN Encounter for immunization 2025 Patient Outreach [facility] [address] [place] [address] Radha Khoury FNP Care Coordination (CHW outreach for SDOH housing search-LVM ) 07/29/2025 2:30 PM EDT Office Visit [facility] [address] [place] [address] Radha Khoury FNP Moderate persistent asthma without complication (Primary Dx); Colon cancer screening; Healthcare maintenance; Dietary counseling; Exercise counseling; Failed spinal cord stimulator, sequela; Chronic bilateral low back pain, unspecified whether sciatica present; Other social stressor; Housing insecurity; Depressive disorder; Smoker 07/29/2025 Travel 07/26/2025 Telephone [facility] [address] [place] [address] Radha Khoury FNP Chart Prep 07/16/2025 Telephone [facility] [address] [place] [address] Radha Khoury FNP Telephone Call from Last 3 Months Immunizations Immunization Administration Dates Next Due Hep A, Adult 11/15/2014,04/21/2012 Hep B, adult 11/15/2014,06/01/2012,04/21/2012 Influenza injectable quadriv alent IIV4 with preservative 08/22/2017 Influenza injectable quadriv alent preservative free 09/27/2023,10/02/2022,12/29/2018,07/30,08/01/2015 Influenza, IIV3, injectable 08/31/2012 Influenza, seasonal, injecta ble, preservative free 09/18/2025,08/10/2024 Moderna Covid-19 Vaccine 6+ Bivalent 10/28/2022 Pfizer Covid-19 Vaccine 12+ 09/18/2025,,09/27/2023 Pneumococcal Conjugate PCV 20 09/26/2024 Pneumococcal Polysaccharide PPSV23 08/02/2014, TD (adult), 2 Lf tetanus tox oid, preservative free, adsorbed 10/31/2004 Td (adult), 5 Lf tetanus tox oid, preservative free, adsorbed 12/05/2014 Tdap 01/30/2021,12/13/2012 Social History Tobacco Use Types Packs/Day Years Used Date Smoking Tobacco: Every Day Cigarettes Smokeless Tobacco: Never Tobacco Cessation:Ready to Q uit: Not Asked; Counseling Given: Not Answered Alcohol Use Standard Drinks/Week Comments Never 0 (1 standard drink = 0.6 oz pur e alcohol) Depression Answer Date Recorded Patient Health Questionnaire-9 Score 6 2025 Patient Health Questionnaire-9 Score 6 2025 Last PHQ-9: Questionnaire Data Not on file 0 2025 Housing Stability Answer Date Recorded What is your housing situation today? I do not have housing (Staying with others, in a hotel, in a retirement, living outside on the street, on a beach, in a car, or in a park [address] you li ve. Do you have problems with any of the following? I am not sure 2025 Food Insecurity Answer Date Recorded Within the past 12 months, y ou worried that your food would run out before you got money to buy more: Never True 2025 Within the past 12 months,th e food you bought just didn't last and you didn't have enough money to get more: Often true Transportation Answer Date Recorded In the past 12 months, has l ack of transportation kept you from medical appts, meetings, work or from getting things needed for daily living? Yes, it has kept me from non-medical meetings, work, or getting things that I need 2025 Utilities Answer Date Recorded In the past 12 months, has t he electric, gas, oil or water company threatened to shut off services in your home? I am not sure 2025 Depression Answer Date Recorded Patient Health Questionnaire-2 Score 1 2025 Internet Access Answer Date Recorded Internet Access Q1 I am not sure 2025 Internet Access Q2 Not on file 2025 Sex and Gender Information Value Date Recorded Sex Assigned at Male 08/30/2022 10:18 AM EDT Legal Sex Male 10:18 AM EDT Gender Identity Male 08/30/2022 10:18 AM EDT Sexual Orientation Straight 08/30/2022 10 :18 AM EDT Last Filed Vital Signs Vital Sign Reading Time Taken Comments Blood Pressure 140/84 07/29/2025 3:32 PM EDT Pulse 88 07/29/2025 2:52 PM EDT Temperature 36.6 C (97.9 F) 07/29/2025 2:52 PM EDT Respiratory Rate 20 07/29/2025 2:52 PM EDT Oxygen Saturation 100% 07/29/2025 2:52 PM EDT Inhaled Oxygen Concentration - - Weight 92.5 kg (204 lb) 07/29/2025 2:52 PM EDT Height 177.8 cm (5' 10 ) 07/29/2025 2:52 PM EDT Body Mass Index 29.27 07/29/2025 2:52 PM EDT Plan of Treatment Health Maintenance Due Date Last Done Comments CT Colonography 1978 Colonoscopy 1978 Colorectal Cancer Screening 1978 FIT DNA/Cologuard 1978 FIT 1978 FOBT 1978 Sigmoidoscopy 1978 Alcohol/Substance Use Screening 1990 Family Planning (PISQ) 1993 Tobacco Screening 07/12/2026 07/12/2025 Depression Screening 2026 2025, 07/30/20 25 Disability Screening 2026 2025 SDOH Screening 2026 2025 Diabetes: Hemoglobin A1C 10/14/2026 025, 09/26/2024, 11/30/2021 Zoster Vaccines (1 of 2) 2028 Lipid Panel 10/14/2030 10/14/2025, 11/30/2021 DTaP/Tdap/Td Vaccines (4 - Td or Tdap) [...] Completed 12/20/2019 Hepatitis C Screening Completed 12/20/2019 Pneumococcal Vaccine: Pediatrics (0 to 5 Years) and At-Risk Patients (6 to 49) Years Completed 09/26/2024, 08/02/2014, 09/08/2012 COVID-19 Vaccine Completed 09/18/2025, 08/2024, 09/27/2023, Additional history exists Influenza Vaccine Completed 09/18/2025, , 09/27/2023, Additional history exists HIB Vaccines Aged Out No longer eligi [...] Procedure Name Priority Date/Time Associated Diagnosis Comments PSA, TOTAL Routine 10/14/2025 1:25 PM EST Healthcare maintenance CBC WITH AUTO DIFFERENTIAL Routine 10/14/2025 1:25 PM EST Healthcare maintenance COMPREHENSIVE METABOLIC PANEL Routine 10/14/2025 1:25 PM EST Healthcare maintenance TSH W/REFLEX TO FT4 Routine 10/14/2025 1 :25 PM EST Healthcare maintenance HEMOGLOBIN A1C Routine 10/14/2025 1:25 PM EST Healthcare maintenance LIPID PANEL, STANDARD Routine 10/14/2025 1:25 PM EST Healthcare maintenance ZZZ HISTORICAL HEPATITIS C ANTIBODY RFLX Routine 12/20/2019 11:15 AM EST ZZZ HISTORICAL HIV AB/AG Routine 12/20/2019 11:15 AM EST from Last 3 Months or Most Recently Relevant to Health Maintenance Results * TSH with Reflex to Free T4 (10/14/2025 1:25 PM EST) TSH reflex Free T4 1.22 0.32 - 4.0 uIU/mL [facility] Blood 10/14/2025 1:25 PM EST 10/14/2025 4:00 PM EST Radha Khoury WEIGHTS AND MEASURES SEALER LAB BLOOD ORDERABLES Final Res ult [facility] [address] [place], [place] [phone] * (ABNORMAL) CBC auto differential (10/14/2025 1:25 PM EST) White Blood Count 6.8 4.8 - 10.8 X10*3/uL [facility] Red Blood Count 5.19 4.60 - 5.80 X10*6/uL [facility] Hemoglobin 15.4 14.0 - 18.0 g/dl [facility] Hematocrit 47.3 42.0 - 52.0 % [facility] Mean Corpuscular Volume 91.1 80.0 - 98.0 fL [facility] Mean Corpuscular Hemoglobin 29.7 27.0 - 33.0 pg [facility] Mean Corpuscular HGB Conc 32.6 31.0 - 36.0 g/dl [facility] Red Cell Distribution Width 12.5 11.0 - 16.0 % [facility] Platelet Count 243 160 - 400 X10*3/uL [facility] Mean Platelet Volume 10.8 9.4 - 12.4 fL [facility] Neutrophils Percent Auto 68.8 45 - 73 % [facility] Imm Gran Pct Auto 0.6(H) 0.0 - 0.4 % [facility] Lymphocytes Percent Auto 21.2 20 - 40 % [facility] Monocytes Percent Auto 7.4 2 - 11 % [facility] Eosinophils Percent Auto 1.0 0 - 4 % [facility] Basophils Percent Auto 1.0 0 - 2 % [facility] NRBC Pct Auto 0.0 0.0 - 0.2 /100WBC [facility] Neutrophils Absolute Auto 4.7 2.0 - 8.3 x10*3/uL [facility] Imm Gran Abs Auto 0.04(H) 0.00 - 0.03 X10*3/uL [facility] Lymphocytes Absolute Auto 1.4 1.2 - 4.9 X10*3/uL [facility] Monocytes Absolute Auto 0.5 0.1 - 1.2 X10*3/uL [facility] Eosinophils Absolute Auto 0.1 0.0 - 0.4 X10*3/uL [facility] Basophils Absolute Auto 0.1 0.0 - 0.2 X10*3/uL [facility] NRBC Abs Auto 0.000 0.0 - 0.012 X10*3/uL [facility] Blood Venous blood specimen / Unknown 10/14/2025 1:25 PM EST 10/14/2025 4:00 PM EST Radha Khoury [facility] BLOOD ORDERABLES Final Res ult Performing Organization Address [facility]/ZIP Co de Phone Number [facility] [address] [place] [phone] * PSA,Total (10/14/2025 1:25 PM EST) Prostate Specific Antigen 0.37 <0.05 - 4.0 ng/mL [facility] Comment:PSA methodology: Abb rupert Alinahomyty i ChemiluminescentMicroparticle Immunoassay (CMIA) Blood Venous blood specimen / Unknown 10/14/2025 1:25 PM EST 10/14/2025 4:00 PM EST Radha [facility] Everettradha [facility] LAB BLOOD ORDERABLES Final Res ult Performing Organization Address City/[facility]/ZIP Co de Phone Number [facility] [address] [place] [phone] * Hemoglobin A1c (10/14/2025 1:25 PM EST) Hemoglobin A1c 5.9 <6.0 % [facility] Comment:Hemoglobin A1C Refer ence Range Adults: 4.8 - 6.0 % Non diabetic: < 6.0 % Goal: < 7.0 %Additional Action Suggested: > 8.0 %Note: Hemoglobin A1c results are invalid for patients with abnormal amounts of HbF. Blood transfusions may impact the HbA1c concentration in the patient sample. Estimated Average Glucose 123 mg/dL [facility] Comment:eAG = Estimated ave rage glucose which is %A1C expressed asaverage glucose, using the formula of the U2I-HloyjwvMhllerw Glucose study (ADAG), Diabetes Care, Vol.31,#8,May. 2007 Blood Venous blood specimen / Unknown 10/14/2025 1:25 PM EST 10/14/2025 4:00 PM EST Radha Khoury [facility] LAB BLOOD ORDERABLES Final Res ult Performing Organization Address City/[facility] Co de Phone Number [facility] [address] [place] [address] [phone] * (ABNORMAL) Lipid Panel, Standard (10/14/2025 1:25 PM EST) Triglycerides 158(H) <150 mg/dL [facility] Comment:Desirable Triglyceri de: less than 150 mg/dLBorderline High Triglyceride 150-199 mg/dLHigh Triglyceride: 200-499 mg/dLVery High Triglyceride: greater than or equal to 5OO mg/dL Cholesterol 240(H) <200 mg/dL [facility] Comment:Desirable Cholestero l: less than 200 mg/dLBorderline High Cholesterol: 200-239 mg/dLHigh Cholesterol: greater than 239 mg/dL LDL Cholesterol Calculated 161(H) <100 mg/dL [facility] Comment:Desirable LDL: less than 100 mg/dLNear Optimal/Above Optimal LDL: 110- 129 mg/dLBorderline High LDL: 130-159 mg/dLHigh LDL: 160-189 mg/dLVery High LDL: greater than or equal to 190 mg/dL HDL Cholesterol 48 >40 mg/dL [facility] Comment:Desirable HDL: great er than 40 mg/dL Note: This HDL assay may give artificially low results in patients with liver disease. Blood Venous blood specimen / Unknown 10/14/2025 1:25 PM EST 10/14/2025 4:00 PM EST Radha Khoury [facility] LAB BLOOD ORDERABLES Final Res ult Performing Organization Address [facility]/ZIP Co de Phone Number [facility] [address] [place] [phone] * (ABNORMAL) Comprehensive Metabolic Panel (10/14/2025 1:25 PM EST) Sodium 142 135 - 145 mmol/L [facility] Potassium 4.5 3.3 - 5.1 mmol/L [facility] Chloride 104 96 - 108 mmol/L [facility] Carbon Dioxide 31(H) 22 - 29 mmol/L [facility] Anion Gap 12 12 - 20 [facility] Urea Nitrogen (BUN) 14 9 - 16 mg/dL [facility] Creatinine, Serum 1.01 0.5 - 1.4 mg/dL [facility] Estimated Glomerular Filt Rate >60 [facility] Comment:Chronic Kidney Disea se: Estimated GFR < 60 mL/min/1.87g1Iflyax Kidney Disease: Estimated GFR < 15 mL/min/1.73m2 Glucose 105 60 - 115 mg/dL [facility] Calcium 10.1 8.4 - 10.2 mg/dL [facility] Bilirubin, Total 0.8 0.0 - 1.0 mg/dL [facility] Aspartate Amino Transferase 34 5 - 37 U/L [facility] Alanine Aminotransferase 32 0 - 40 U/L [facility] Total Protein 8.8(H) 6.5 - 8.0 g/dL [facility] Albumin Level 5.2(H) 3.5 - 5.0 g/dL [facility] Alkaline Phosphatase 103 39 - 117 U/L [facility] Blood Venous blood specimen / Unknown 10/14/2025 1:25 PM EST 10/14/2025 4:00 PM EST Radha Khoury [employer] MEASURES SEALER LAB BLOOD ORDERABLES Final Res ult Performing Organization Address [facility]/ZIP Co de Phone Number [facility] [address] [place] [address] [phone] * HEPATITIS C ANTIBODY RFLX (12/20/2019 11:15 AM EST) HEPATITIS C ANTIBODY [facility] Comment: Antibodies to HCV not detected; does not exclude early acute HCV infection. 12/20/2019 11:1 5 AM EST Kimberly Harrison NP HISTORICAL/NON ORDERABLE LABS Fi nal Result Performing Organization Address [facility] Number [facility] [address] * HIV AB/AG (12/20/2019 11:15 AM EST) Pathologist [facility] HIV AG/AB NONREACTIVE NR FOUNDAT[facility] ON LAB [...] of detection of this assay. The [employer] HIV Ag/Ab Combo assay result and supplemental assay results should be interpreted in conjunction with the patient's clinical presentation, history and other laboratory results. If the results are inconsistent with clinical evidence, additional testing is suggested to confirm the result. 12/20/2019 11:1 5 AM EST Kimberly Harrison NP HISTORICAL/NON ORDERABLE LABS Fi nal Result Performing Organization Address [facility] Phone Number [facility] [address] from Last 3 Months or Most Recently Relevant to Health Maintenance Insurance [facility] STANDARD Care Teams Junior Sales Assistant Relationship Specialty Start Date End Date Radha Khoury FNP [address] [place] [phone] PCP - General Family Medicine 06/07/23 Levi Alvarado Remedy Developer 09/26/24
--- OUTSIDE RECORDS SUMMARY | 2025-10-14 19:17 | XMS_ITS | Encounter Summary ---
Author Organization [employer] Address [address] [place] [address] [address] [place] [address] Care Team Providers Care Wind Turbine Machinist Name Role Phone Radha Khoury Primary Care Provider [phone] Radha Khoury Primary Care Provider [phone] Encounter Details Date Type Department Care Team ([facility] st Contact Info) Description 05/12/2023 Abstract [facility] [address], [place] [phone] Radha Khoury FNP [address] [place] [address] Social History Tobacco Use Types Packs/Day Years [...] as of this encounter Plan of Treatment Not on file documented as of this encounter Visit Diagnoses Not on filedocumented in this encounter Care Teams Wind Turbine Machinist Relationship Specialty Start Date End Date Radha Khoury FNP [address] [place] [address] PCP - General Family Medicine 06/30/22 06/06/23 Radha Khoury FNP [address] [place] [address] PCP - General Family Medicine 06/07/23 Levi Alvarado Pneumatic Drum Sander 09/26/24 documented as of this encounter
[2025-10-15 04:34] LABS: HIV Num 1 0.07 S/CO (0.00-0.99)
[2025-10-15 09:55] LABS: CT PCR Urine NOT DETECTED (Not Detect.); NG PCR Urine NOT DETECTED (Not Detect.)
[2025-10-16 08:49] LABS: HCV Log PCR <1.18 NOT DETECTED Log IU/mL (NOT DETECTED); HepC Viral Load <15 NOT DETECTED IU/mL (NOT DETECTED)
== END 2025-10-14 13:20 | disposition home or self-care (01) ==
LOC: HO.HHCL 13:19
PROVIDERS: PCP Registered Nurse; Visit Provider Registered Nurse
DX: Z00.00 Encounter for general adult medical examination without abnormal findings (principal); Z12.5 Encounter for screening for malignant neoplasm of prostate; Z11.4 Encounter for screening for human immunodeficiency virus [HIV]; Z20.2 Contact with and (suspected) exposure to infections with a predominantly sexual mode of transmission
CPT/HCPCS: 80053; 80061; 83036; 84153; 84443; 85025; 86592; 87389; 87491; 87522; 87591